=== PATIENT | female | born 1945 | race Caucasian/White ===

== ENCOUNTER → 2017-04-12 | Outpatient (CLI) | payer BC, MEDICARE ==
[~2017-04-12] MED LIST: ALPR.25T PO; ALPR0.5T7 PO; AMLO10TA2 PO; AMLO5TAB2 PO; AMOX1TAB11 PO; APIX5TAB PO; ASP81TEC PO; ATEN100T PO; ATEN25TA PO; ATEN50TA PO; CA C1TAB26 PO; CETI10TA20 PO; CHOL10007 PO; CPR250T PO; CYAN250T14 PO; DABI75CA3 PO; DCS100C PO; EST1.25T PO; FESO4TAB2 PO; GLYB2.5T4 PO; HYDR-3583 PO; HYDR-3812 PO; IBUP-2055 PO; LVT.05T PO; METF1000 PO; MTF500T PO; OLOP2.5D OP; OMEG-160 PO; OMEG1CAP51 PO; POLY17PO23 PO; PRAV10TA PO; PRV20T PO; PSYL1PAC15 PO
== END ==
LOC: CARD 13:30
PROVIDERS: ATTEND Internal Medicine Cardiovascular Disease
DX: E11.9 Type 2 diabetes mellitus without complications (principal); I10 Essential (primary) hypertension; E78.4 Other hyperlipidemia; I48.0 Paroxysmal atrial fibrillation; I73.9 Peripheral vascular disease, unspecified; I34.8 Other nonrheumatic mitral valve disorders; Z87.891 Personal history of nicotine dependence
CPT/HCPCS: 93306

== ENCOUNTER → 2017-04-24 | Outpatient (CLI) | payer BC, MEDICARE | LOC: RAD 14:46 | PROVIDERS: ATTEND Internal Medicine Cardiovascular Disease | DX: E78.4 Other hyperlipidemia (principal); E11.51 Type 2 diabetes mellitus with diabetic peripheral angiopathy without gangrene; I10 Essential (primary) hypertension; I48.0 Paroxysmal atrial fibrillation; Z87.891 Personal history of nicotine dependence | CPT/HCPCS: 93923 ==

== ENCOUNTER → 2018-02-13 | Outpatient (CLI) | payer BC, MEDICARE ==
[~2018-02-13] MED LIST changes: +ACHD5005 PO; -HYDR-3812 PO; -METF1000 PO; +METF10002 PO
--- NOTE | 2018-02-13 08:45 | Diagnostic Imaging Report ---
PROCEDURE: US abdomen complete. TECHNIQUE: Multiple real-time grayscale images were obtained over the abdomen in various projections. INDICATION: Epigastric pain. COMPARISON: None. FINDINGS: There is a 3.1 cm cyst in the right hepatic lobe. There is diffuse hepatic steatosis. There is no biliary dilatation. The common bile duct measures about 5 mm. The gallbladder appears unremarkable. The pancreas is unremarkable as visualized. The tail is not well seen. The spleen measures about 10 cm in length and appears normal. The right kidney measures 10.6 cm in length and left kidney measures 12.4 cm in length. Both appear unremarkable. The abdominal aorta and inferior vena cava are unremarkable as visualized. Distal abdominal aorta is not well seen. There is no ascites or sonographic Thorne's sign. IMPRESSION: 1. Diffuse hepatic steatosis and 3.1 cm right hepatic lobe cyst. 2. No additional abnormality is seen. Limited visualization of the pancreas and abdominal aorta. Dictated by: Dictated on workstation # [id number]
== END ==
LOC: RAD 07:29
PROVIDERS: ATTEND Internal Medicine
DX: K76.0 Fatty (change of) liver, not elsewhere classified (principal); K76.89 Other specified diseases of liver
CPT/HCPCS: 76700

== ENCOUNTER → 2018-09-23 | Outpatient (CLI) | payer MEDICARE, OTHER ==
[~2018-09-23] MED LIST changes: -AMLO10TA2 PO; +AMLO10TA6 PO; +METF-399 PO; -METF10002 PO
--- NOTE | 2018-09-23 13:18 | Diagnostic Imaging Report ---
INDICATION: Routine screening. COMPARISON: 06/01/2016. TECHNIQUE: 2D and 3D bilateral screening mammography was performed with CAD. FINDINGS: Scattered fibroglandular densities are identified bilaterally. The parenchymal pattern is stable. No mass or malignant appearing microcalcifications are seen. The axillae are unremarkable. IMPRESSION: No mammographic features suspicious for malignancy are identified. ACR BI-RADS Category 1: Negative. Result letter will be mailed to the patient. Note: At least 10% of breast cancer is not imaged by mammography. Dictated by: Dictated on workstation # [id number]
== END ==
LOC: RAD 09:42
PROVIDERS: ATTEND Internal Medicine
DX: Z12.31 Encounter for screening mammogram for malignant neoplasm of breast (principal)
CPT/HCPCS: 77067

== ENCOUNTER 2019-04-03 23:34 | Emergency (ER) | payer MEDICARE, OTHER ==
[~2019-04-03] VITALS: Ht 162.6 cm; Wt 75.3 kg
[~2019-04-03 23:34] MED LIST changes: -AMLO10TA6 PO; +AMLO10TA7 PO
[2019-04-03] MEDS ORDERED: NS IV 1000 ML 1,000 ML IV SCH (23:50)
--- NOTE | 2019-04-04 | ED GI ---
General Stated Complaint: RECTAL BLEEDING Source of Information: Patient History of Present Illness Date Seen by Provider: Apr 03, 2019 Time Seen by Provider: 23:40 Initial Comments PT ARRIVES VIA POV FROM HOME STATES SHE HAD BEEN LAYING DOWN, AND GOT UP TO GO TO THE BATHROOM TO URINATE, AND WHEN SHE DID, SHE STARTED PASSING BLOOD AND THEN A BLOOD CLOT FROM HER RECTUM. NO STOOL WAS PASSED, ONLY BLOOD. STATES BLEEDING HAS STOPPED NOW, OCCURRED 30 MINUTES AGO NO RECTAL PAIN NO ABDOMINAL PAIN, BUT STATES "IT SOUNDS LIKE MACHINE GUN NOISES COMING FROM ONE SIDE" OF ABDOMEN--STATES THAT HER STOMACH IS "RUMBLING" NO NAUSEA/VOMITING, AND HAD A NORMAL BM EARLIER TODAY. DENIES ANY STRAINING WITH VOIDING OR WITH BM'S STATES SHE IS NOT HAVING ANY PROBLEMS URINATING AND NO BLOOD IN HER URINE NO HISTORY OF SIMILAR STATES SHE HAS HAD HEMORRHOIDS IN THE PAST, BUT HAS NOT HAD ANY PROBLEMS FOR A LONG TIME, AND NEVER HAD BLEEDING LIKE THIS WITH HEMORRHOIDS. NO DIZZINESS NO SWEATS PT HAS NEVER HAD A COLONOSCOPY OR EGD, AND NOT HAD ANY SIGNIFICANT GI PROBLEMS, OTHER THAN OCCASIONAL ACID REFLUX SYMPTOMS THAT ARE RELIEVED WITH OTC PEPCID PT STATES SHE DOES TAKE XARELTO FOR ATRIAL FIBRILLATION NO EXCESSIVE BRUISING ANYWHERE ON BODY, NO BLEEDING FROM GUMS, ETC. PT IS CURRENTLY BEING TREATED FOR A SINUS INFECTION OVER THE LAST WEEK--IS ON CEFDINIR, AND HAD 3 DOSES OF PREDNISONE, PLUS A NASAL SPRAY PT IS DIABETIC AND TOOK HER INSULIN JUST PRIOR TO ARRIVAL, BUT DID NOT CHECK BLOOD SUGAR PCP: DR. KRUGER MANAGER MATERIAL: DR. DAVID Allergies and Home Medications Allergies Coded Allergies: meperidine HCl (Verified Allergy, Unknown, 01/31/16) Home Medications Alprazolam 0.5 Mg Tablet, 0.5 MG PO EVERY 6-8 HOURS PRN for ANXIETY, (Reported) Amlodipine Besylate 10 Mg Tablet, 10 MG PO DAILY, (Reported) Amoxicillin/Potassium Clav 1 Each Tablet, 500 MG PO BID WITH MEALS Prescribed by: WASHINGTON KRUGER on 02/04/16 0914 Apixaban 5 Mg Tablet, 5 MG PO BID, (Reported) Atenolol 100 Mg Tablet, 100 MG PO DAILY, (Reported) Atenolol 50 Mg Tablet, 50 MG PO HS, (Reported) Cetirizine HCl 10 Mg Tablet, 10 MG PO HS, (Reported) Cholecalciferol (Vitamin D3) 1,000 Unit Capsule, 1,000 UNIT PO DAILY, (Reported) Glyburide 2.5 Mg Tablet, 2.5 MG PO DAILY@0630 Prescribed by: WASHINGTON KRUGER on 02/04/16913 Hydrocodone Bit/Acetaminophen 1 Each Tablet, 1 TAB PO Q4H PRN for PAIN Prescribed by: WASHINGTON KRUGER on 02/04/16913 Ibuprofen 200 Mg Tablet, 800 MG PO EVERY 6-7 HOURS PRN for PAIN, (Reported) Levothyroxine Sodium 50 Mcg Tablet, 50 MCG PO DAILY, (Reported) Metformin HCl 1,000 Mg Tablet, 1,000 MG PO BID WITH MEALS, (Reported) [place]-3/Dha/Epa/Fish Oil 1 Each Capsule, 2,000 MG PO DAILY, (Reported) [place]stat[place]-3/Dha/Epa/Fish Oil 1 Each Capsule, 1,000 MG PO EVERY EVENING, (Reported) Pravastatin Sodium 10 Mg Tablet, 10 MG PO HS, (Reported) Patient Home Medication List Home Medication List Reviewed: Yes Review of Systems Review of Systems Constitutional: no symptoms reported; No diaphoresis, No dizziness Respiratory: No Symptoms Reported Cardiovascular: No Symptoms Reported Gastrointestinal: See HPI; Denies Abdominal Pain, Denies Constipated, Denies Diarrhea, Denies Nausea, Denies Poor Appetite, Denies Poor Fluid Intake; Rectal Bleeding; Denies Vomiting; Other (STATES ABDOMEN IS "BLOATED" BUT DOES NOT HURT) Genitourinary: No Symptoms Reported Musculoskeletal: no symptoms reported Skin: no symptoms reported Psychiatric/Neurological: No Symptoms Reported Endocrine: No Symptoms Reported Hematologic/Lymphatic: See HPI Past Hgwnuvb-Gjkbxd-Gpuglw Hx Patient Social History Alcohol Use: Rarely Uses Recreational Drug Use: No Smoking Status: Former Smoker (SMOKED A FEW CIGARETTES A DAY, BUT NONE FOR YEARS) Former Smoker, Quit: January 30, 1993 Recent Foreign Travel: No Contact w/Someone Who Travel: No Immunizations Up To Date Tetanus Booster (TDap): Less than 5yrs Date of Influenza Vaccine: Jun 10, 2011 Seasonal Allergies Seasonal Allergies: No Past Medical History Surgeries: Yes (HYST/BSO/APPY 1982; BLADDER SURGERY X 3--LAST ONE IN 2011, ALSO HAD RECTOCOELE REPAIR WITH ONE OF THE BLADDER SURGERIES) Appendectomy, Bladder Surgery, Eye Surgery, Hysterectomy, Oophorectomy, Rectal Respiratory: No Currently Using CPAP: Yes Cardiac: Yes Atrial Fibrillation, High Cholesterol, Hypertension, Valvular Heart Disease Neurological: No Reproductive Disorders: Yes (RECTOCOELE) 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 NO EGD OR COLONOSCOPY) Hemorrhoids Musculoskeletal: No Endocrine: Yes Diabetes, Insulin dep HEENT: Yes Cataract Cancer: No Psychosocial: Yes Anxiety, Depression Integumentary: No Blood Disorders: No Family Medical History Congenital heart disease FH: CHF (congestive heart failure) 19 FATHER ( at 48) Hypercholesterolemia G8 SISTER Hypertension G8 SISTER Myocardial infarction 19 FATHER, Onset:30's - 40 (DC at 36) Osteoporosis G8 SISTER CAD Under 55 Years Old Physical Exam Vital Signs Vital Signs - First Documented 04/03/19 23:40 Temp 97.8 Pulse 64 Resp 20 B/P (MAP) 111/69 (83) Pulse Ox 97 O2 Delivery Room Air Capillary Refill : Height/Weight/BMI Height: 5'4.00" Weight: 166lbs. 0.0oz. 75.292309gp; 28.5 BMI Method:Stated General Appearance: WD/WN, no apparent distress HEENT: No pale conjunctivae (R), No pale conjunctivae (L) Neck: normal inspection Respiratory: normal breath sounds, no respiratory distress, no accessory muscle use Cardiovascular: regular rate, rhythm, no edema, no murmur Gastrointestinal: normal bowel sounds, non tender, soft, no organomegaly, no pulsatile mass Rectal: normal rectal tone, other (SMALL AMOUNT OF DRIED BLOOD TO ANUS--NO ACTIVE BLEEDING. HAS AT LEAST 2 VERY TENDER, VERY FIRM INTERNAL HEMORRHOIDS--THE ONE AT 6:00 POSITION IS LARGEST AND IS THE MOST FIRM AND TENDER. NO STOOL IN RECTAL VAULT. 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, no motor/sensory deficits, alert, oriented x 3 Skin: normal color, warm/dry Progress/Results/Core Measures Results/Orders Lab Results Laboratory Tests Test 04/03/19 23:50 04/04/19 00:07 04/04/19 00:15 Range/Units White Blood Count 8.7 4.3-11.0 10^3/uL Red Blood Count 4.82 4.35-5.85 10^6/uL Hemoglobin 13.7 11.5-16.0 G/DL Hematocrit 41 35-52 % Mean Corpuscular Volume 84 80-99 FL Mean Corpuscular Hemoglobin 28 25-34 PG Mean Corpuscular Hemoglobin Concent 34 32-36 G/DL Red Cell Distribution Width 13.8 10.0-14.5 % Platelet Count 258 130-400 10^3/uL Mean Platelet Volume 11.3 H 7.4-10.4 FL Neutrophils (%) (Auto) 50 42-75 % Lymphocytes (%) (Auto) 37 12-44 % Monocytes (%) (Auto) 9 0-12 % Eosinophils (%) (Auto) 4 0-10 % Basophils (%) (Auto) 1 0-10 % Neutrophils # (Auto) 4.3 1.8-7.8 X 10^3 Lymphocytes # (Auto) 3.2 1.0-4.0 X 10^3 Monocytes # (Auto) 0.8 0.0-1.0 X 10^3 Eosinophils # (Auto) 0.3 0.0-0.3 10^3/uL Basophils # (Auto) 0.1 0.0-0.1 10^3/uL Prothrombin Time 14.2 12.2-14.7 SEC INR Comment 1.1 0.8-1.4 Activated Partial Thromboplast Time 37 H 24-35 SEC Sodium Level 138 135-145 MMOL/L Potassium Level 3.9 3.6-5.0 MMOL/L Chloride Level 104 98-107 MMOL/L Carbon Dioxide Level 18 L 21-32 MMOL/L Anion Gap 16 H 5-14 MMOL/L Blood Urea Nitrogen 17 7-18 MG/DL Creatinine 0.83 0.60-1.30 MG/DL Estimat Glomerular Filtration Rate > 60 BUN/Creatinine Ratio 20 Glucose Level 181 H 70-105 MG/DL Calcium Level 10.3 H 8.5-10.1 MG/DL Corrected Calcium 8.5-10.1 MG/DL Total Bilirubin 0.3 0.1-1.0 MG/DL Aspartate Amino Transf (AST/SGOT) 32 5-34 U/L Alanine Aminotransferase (ALT/SGPT) 55 0-55 U/L Alkaline Phosphatase 77 40-136 U/L Total Protein 8.3 H 6.4-8.2 GM/DL Albumin 4.8 H 3.2-4.5 GM/DL Amylase Level 75 25-125 U/L Lipase 46 8-78 U/L Glucometer 181 H 70-110 MG/DL Urine Color YELLOW Urine Clarity CLEAR Urine pH 7 5-9 Urine Specific [place] 1.015 L 1.016-1.022 Urine Protein 2+ H NEGATIVE Urine Glucose (UA) 2+ H NEGATIVE Urine Ketones NEGATIVE NEGATIVE Urine Nitrite NEGATIVE NEGATIVE Urine Bilirubin NEGATIVE NEGATIVE Urine Urobilinogen NORMAL NORMAL MG/DL Urine Leukocyte Esterase NEGATIVE NEGATIVE Urine RBC (Auto) 4+ H NEGATIVE Urine RBC 0-2 /HPF Urine WBC NONE /HPF Urine Squamous Epithelial Cells 2-5 /HPF Urine Crystals NONE /LPF Urine Bacteria NEGATIVE /HPF Urine Casts NONE /LPF Urine Mucus NEGATIVE /LPF Urine Culture Indicated NO My Orders Orders - LORRAINE LYNN DO Accucheck Stat ONCE (04/03/19 23:50) Ed Iv/Invasive Line Start (04/03/19 23:50) Monitor-Rhythm Ecg Trace Only (04/03/19 23:50) Amylase (04/03/19 23:50) Cbc With Automated Diff (04/03/19 23:50) Comprehensive Metabolic Panel (04/03/19 23:50) Lipase (04/03/19 23:50) Protime With Inr (04/03/19 23:50) Partial Thromboplastin Time (04/03/19 23:50) Ua Culture If Indicated (04/03/19 23:50) Ed Iv/Invasive Line Start (04/03/19 23:50) Ns Iv 1000 Ml (Sodium Chloride 0.9%) (04/03/19 23:50) Ct Abdomen/Pelvis W (04/04/19 00:30) Acute Abd Series (04/04/19 00:30) Iohexol Injection (Omnipaque 350 Mg/Ml 1 (04/04/19 01:00) Received Contrast (Hold Metformin- Contr (04/04/19 01:00) Ns (Ivpb) (Sodium Chloride 0.9% Ivpb Bag (04/04/19 01:00) Medications Given in ED Current Medications Medications Dose Ordered Sig/Esmer Route Start Time Stop Time Status Last Admin Dose Admin Iohexol 100 ml ONCE ONCE IV 04/04/19 01:00 04/04/19 01:01 DC 04/04/19 01:01 100 ML Sodium Chloride 80 ml ONCE ONCE IV 04/04/19 01:00 04/04/19 01:01 DC 04/04/19 01:01 80 ML Vital Signs/I&O 04/03/19 23:40 Temp 97.8 Pulse 64 Resp 20 B/P (MAP) 111/69 (83) Pulse Ox 97 O2 Delivery Room Air Progress Progress Note : Progress Note NO RECTAL BLEEDING DURING ENTIRE ER STAY NO ABDOMINAL PAIN OR NAUSEA/VOMITING, AND NO BM DURING ER STAY PT STATES THAT SHE HAS SEEN DR. VICTOR IN THE PAST FOR AN INFECTED DOG BITE. ADVISED HER TO CALL HIS OFFICE IN THE MORNING, WELL DR. KRUGER'S OFFICE, FOR FOLLOW UP CARE. ADVISED THAT SHE WOULD LIKELY NEED A COLONOSCOPY AT SOME POINT. PT IS ANXIOUS TO GO HOME, STATES SHE FEELS FINE AND HAS NOT HAD ANY BLEEDING HERE. PT ADVISED TO RETURN TO ER IF SYMPTOMS WORSEN/RETURN. Diagnostic Imaging Comments ABDOMEN XRAYS--NO ACUTE PROCESS, PENDING RADIOLOGIST REVIEW CT ABDOMEN/PELVIS--NO ACUTE PROCESS, HEPATIC STEATOSIS; DIVERTICULOSIS--NO ACUTE DIVERTICULITIS, AND NO BOWEL WALL THICKENING; MILD HIATAL HERNIA; POSSIBLE HEPATIC CYST OR HEMANGIOMA OF LIVER--PER [facility] VIA FAX AT [id number] Reviewed: Reviewed by Me Departure Impression Primary Impression: Rectal bleeding Additional Impressions: XARELTO USE Internal hemorrhoids Disposition: HOME, SELF-CARE Condition: Improved Departure-Patient Inst. Referrals: TAWNY VICTOR MINDI DO (PCP/Family) Primary Care Physician Patient Instructions: Hemorrhoids (DC), Gastrointestinal Bleeding (DC) Add. Discharge Instructions: HOLD YOUR MORNING DOSE OF XARELTO CONTINUE ALL OTHER MEDICATIONS FOLLOW UP WITH DR. KRUGER AND DR. VICTOR FOR THIS PROBLEM--CALL IN AM FOR APPOINTMENT RETURN TO ER IF SYMPTOMS WORSEN LORRAINE LYNN DO Apr 04, 2019 00:00
[2019-04-04 00:12] LABS: BASOPHILS # (AUTO) 0.1 10^3/uL (0.0-0.1); BASOPHILS % (AUTO) 1 % (0-10); EOSINOPHILS # (AUTO) 0.3 10^3/uL (0.0-0.3); EOSINOPHILS % (AUTO) 4 % (0-10); HEMATOCRIT 41 % (35-52); HEMOGLOBIN 13.7 G/DL (11.5-16.0); LYMPHOCYTES # (AUTO) 3.2 X 10^3 (1.0-4.0); LYMPHOCYTES % (AUTO) 37 % (12-44); MEAN CORPUSCULAR HEMOGLOBIN 28 PG (25-34); MEAN CORPUSCULAR HGB CONC 34 G/DL (32-36); MEAN CORPUSCULAR VOLUME 84 FL (80-99); MEAN PLATELET VOLUME 11.3 FL (7.4-10.4); MONOCYTES # (AUTO) 0.8 X 10^3 (0.0-1.0); MONOCYTES % (AUTO) 9 % (0-12); NEUTROPHILS # (AUTO) 4.3 X 10^3 (1.8-7.8); NEUTROPHILS % (AUTO) 50 % (42-75); PLATELET COUNT 258 10^3/uL (130-400); RED CELL DISTRIBUTION WIDTH 13.8 % (10.0-14.5); WHITE BLOOD COUNT 8.7 10^3/uL (4.3-11.0)
[2019-04-04 00:20] LABS: INR 1.1 (0.8-1.4); PROTHROMBIN TIME PATIENT 14.2 SEC (12.2-14.7)
[2019-04-04 00:25] LABS: ALANINE AMINOTRANSFERASE 55 U/L (0-55); ALBUMIN 4.8 GM/DL (3.2-4.5); ALKALINE PHOSPHATASE 77 U/L (40-136); AMYLASE 75 U/L (25-125); BILIRUBIN,TOTAL 0.3 MG/DL (0.1-1.0); BUN/CREATININE RATIO 20; CALCIUM 10.3 MG/DL (8.5-10.1); CARBON DIOXIDE 18 MMOL/L (21-32); CHLORIDE 104 MMOL/L (98-107); CREATININE SERUM 0.83 MG/DL (0.60-1.30); GFR ESTIMATED > 60; GLUCOSE 181 MG/DL (70-105); LIPASE 46 U/L (8-78); POTASSIUM 3.9 MMOL/L (3.6-5.0); SODIUM 138 MMOL/L (135-145); TOTAL PROTEIN 8.3 GM/DL (6.4-8.2)
[2019-04-04 00:34] LABS: BILIRUBIN,URINE NEGATIVE (NEGATIVE); CLARITY,URINE CLEAR; COLOR,URINE YELLOW; GLUCOSE, URINE (UA) 2+ (NEGATIVE); KETONES,URINE NEGATIVE (NEGATIVE); LEUKOCYTE ESTERASE ,URINE NEGATIVE (NEGATIVE); NITRITE,URINE NEGATIVE (NEGATIVE); PH,URINE 7 (5-9); PROTEIN,URINE 2+ (NEGATIVE); UROBILINOGEN,URINE NORMAL (NORMAL)
[2019-04-04 00:41] LABS: BACTERIA,URINE NEGATIVE /HPF; RBC,URINE 0-2 /HPF
[2019-04-04] MEDS ORDERED: HOLD METFORMIN - RECEIVED CONTRAST 20 ML VIAL IV SCH (01:00)
[2019-04-04] MEDS ORDERED: IOHEXOL 350 MG/ML 100 ML (OMNIPAQUE 350) VIAL IV ONE (01:00)
[2019-04-04] MEDS ORDERED: NS 100 ML (IVPB) BAG IV ONE (01:00)
[2019-04-04 01:58] VITALS: BP 114/75
--- NOTE | 2019-04-04 05:25 | Diagnostic Imaging Report ---
INDICATION: Rectal bleeding. COMPARISON: None FINDINGS: Supine and upright views of the abdomen show a nondistended bowel gas pattern. No abnormal air fluid levels or free intraperitoneal air is seen. No abnormal extraosseous calcifications are seen. Bony and soft tissue structures are within normal limits. No organomegaly is identified. Accompanying upright chest shows normal heart size and pulmonary vascularity. The lungs are well aerated and clear. The mediastinum is normal in appearance. IMPRESSION: 1. No bowel obstruction or free air. 2. Normal chest. No pneumonia or pulmonary edema. Dictated by: Dictated on workstation # [id number]
--- NOTE | 2019-04-04 06:33 | Diagnostic Imaging Report ---
PROCEDURE: CT abdomen and pelvis with contrast. TECHNIQUE: Multiple contiguous axial images were obtained through the abdomen and pelvis after administration of intravenous contrast. Auto Exposure Controls were utilized during the CT exam to meet ALARA standards for radiation dose reduction. INDICATION: Rectal bleeding. FINDINGS: No comparison available. Limited views of the lower thorax are normal. There is hepatic steatosis. A 13 mm low attenuating lesion in the right hemiliver likely a cyst with some sparing of steatosis. Portal vein is patent. Gallbladder is normal. No biliary ductal dilation. Pancreas, spleen and adrenal glands are normal. Kidneys enhance symmetrically without focal lesion. No hydronephrosis. Urinary bladder is normal. There is extensive diverticulosis without diverticulitis. No free fluid or air. No obstruction or inflammation. No abdominal or pelvic lymphadenopathy. Abdominal aorta is normal in caliber. There are no suspicious osseous lesions. IMPRESSION: 1. Extensive diverticulosis without diverticulitis. 2. Hepatic steatosis. Dictated by: Dictated on workstation # [id number]
== END 2019-04-04 01:58 | disposition home or self-care (01) ==
LOC: EDUNIT# 23:34 → ER 23:36
DX: K64.8 Other hemorrhoids (principal); I48.91 Unspecified atrial fibrillation; E11.9 Type 2 diabetes mellitus without complications; I10 Essential (primary) hypertension; E78.00 Pure hypercholesterolemia, unspecified; F41.9 Anxiety disorder, unspecified; F32.9 Major depressive disorder, single episode, unspecified; Z87.440 Personal history of urinary (tract) infections; Z88.5 Allergy status to narcotic agent; Z79.4 Long term (current) use of insulin; Z79.01 Long term (current) use of anticoagulants; Z79.84 Long term (current) use of oral hypoglycemic drugs; Z87.891 Personal history of nicotine dependence; Z90.49 Acquired absence of other specified parts of digestive tract; Z90.710 Acquired absence of both cervix and uterus; Z82.49 Family history of ischemic heart disease and other diseases of the circulatory system
CPT/HCPCS: 36415; 74022; 74177; 80053; 81000; 82150; 82962; 83690; 85025; 85610; 85730; 93041; 96360

== ENCOUNTER 2019-05-16 11:30 | Outpatient (CLI) | payer MEDICARE, OTHER ==
[~2019-05-16] VITALS: Ht 162.6 cm; Wt 72.6 kg
[2019-05-16] MEDS ORDERED: FENO145T37 PO (11:44)
[2019-05-16] MEDS ORDERED: GLYB2.5T4 PO (11:44)
[2019-05-16] MEDS ORDERED: LEVO75TA6 PO (11:44)
[2019-05-16] MEDS ORDERED: OMEP20TA33 PO (11:44)
[2019-05-16] MEDS ORDERED: INSU100I29 SQ (11:46)
[2019-05-16] MEDS ORDERED: GLIM2TAB PO (11:46)
== END 2019-05-16 12:26 | disposition home or self-care (01) ==
LOC: PREOP 11:30
PROVIDERS: ATTEND Surgery
DX: Z01.818 Encounter for other preprocedural examination (principal)

== ENCOUNTER 2019-05-20 07:41 | Day surgery (SDC) | payer MEDICARE, OTHER ==
[~2019-05-20] VITALS: Ht 162.6 cm; Wt 72.6 kg
[2019-05-20] VITALS (7 sets, daily range): BP systolic 115–172; BP diastolic 61–92
[~2019-05-20 07:41] MED LIST changes: +FENO145T37 PO; +GLIM2TAB PO; +INSU100I29 SQ; +LEVO75TA6 PO; +OMEP20TA33 PO
[2019-05-20] MEDS ORDERED: LACTATED RINGERS 1,000 ML IV ONE (07:47)
[2019-05-20] MEDS ORDERED: LACTATED RINGERS 1,000 ML IV STA (07:53)
[2019-05-20] MEDS ORDERED: NS IV 500 ML 500 ML IV SCH (08:15)
[2019-05-20] MEDS ORDERED: MIDAZOLAM 2 MG/2 ML (VERSED) VIAL ONE (08:26)
[2019-05-20] MEDS ORDERED: proPOfol 200 MG/20 ML (DIPRIVAN) VIAL IV ONE (08:26)
--- NOTE | 2019-05-20 08:47 | Progress Note-Pre Operative ---
Pre-Operative Progress Note H&P Reviewed The H&P was reviewed, patient examined and no changes noted. Date Seen by Provider: May 20, 2019 Time Seen by Provider: 08:37 Date H&P Reviewed: May 20, 2019 Time H&P Reviewed: 08:37 Pre-Operative Diagnosis: bright red blood per rectum, family hx colon cancer TAWNY VICTOR DO May 20, 2019 08:47
--- NOTE | 2019-05-20 09:15 | Progress Note-Post Operative ---
Post-Operative Progess Note Surgeon (s)/Senior Sales Compensation Analyst (s) Surgeon TAWNY VICTOR DO Senior Sales Compensation Analyst: na Pre-Operative Diagnosis bright red blood per rectum, family hx colon cancer Post-Operative Diagnosis diverticulosis, colon polyp x2 Procedure & Operative Findings Date of Procedure 05/20/19 Procedure Performed/Findings colonoscopy c hot bx polypectomy x 1 and snare polypectomy x 1 Anesthesia Type per mda Estimated Blood Loss Estimated blood loss (mL): none Specimens/Packing Specimens Removed ascending and sigmoid colon TAWNY VICTOR DO May 20, 2019 09:15
--- NOTE | 2019-05-20 09:16 | Discharge Inst-Simple/Standard ---
Discharge Inst-Standard Patient Instructions/Follow Up Plan of Care/Instructions/FU: 2 weeks Juan [place] Activity as Tolerated: Yes Discharge Diet: Regular Diet (high fiber) TAWNY VICTOR DO May 20, 2019 09:16
--- NOTE | 2019-05-20 10:01 | Anesthesia-General Post-Op ---
MAC Patient Condition Mental Status/LOC: Same as Preop Cardiovascular: Satisfactory Nausea/Vomiting: Absent Respiratory: Satisfactory Pain: Controlled Complications: Absent Post Op Complications Complications None Follow Up Care/Instructions Patient Instructions None needed. Anesthesiology Discharge Order Discharge Order Patient is doing well, no complaints, stable vital signs, no apparent adverse anesthesia problems. No complications reported per nursing. TYRA CANDELARIA CRNA May 20, 2019 10:01
--- NOTE | 2019-05-20 15:36 | OPERATIVE REPORT ---
DATE OF SERVICE: 05/20/2019 PREOPERATIVE DIAGNOSES: Bright red blood per rectum and family history of colon cancer. POSTOPERATIVE DIAGNOSES: Colon polyps, diverticulosis. PROCEDURES PERFORMED: Colonoscopy with hot biopsy polypectomy x1 and snare polypectomy x1. SURGEON: Tawny Rangel DO ANESTHESIA: Per MDA. ESTIMATED BLOOD LOSS: None. COMPLICATIONS: None. INDICATIONS: The patient is a 74-year-old female with bright red blood per rectum recently and has family history of colon cancer. She understands risks and benefits of procedure and wished to proceed with procedure. Consent was signed in the chart. DESCRIPTION OF PROCEDURE: The patient was taken to the endoscopy suite, placed in left lateral recumbent position. Timeout was performed. Digital rectal exam was performed. There were no palpable polyps, masses or ulcerations. Scope was inserted in the rectum, advanced all the way to cecum with minimal difficulty. Prep was adequate. Scope was then slowly retracted back. There were no polyps, masses or ulcerations in the cecum. In the ascending colon, a flat larger polyp was present, which hot biopsy polypectomy was performed. The scope was then continued to slowly retract back. There were no other polyps, masses or ulcerations within the remainder of the ascending, transverse and descending colon. In the sigmoid colon, moderate amount of diverticulosis present. There is also a larger polyp, which snare polypectomy was performed. This was able to be suctioned for specimen to be obtained. Scope was then continued to slowly retract back into the rectum, where it was also retroflexed noting no other pathology. Scope was returned to its normal position, slowly withdrawn until completely removed. RECOMMENDATIONS: The patient will follow up on pathology. We would recommend repeat colonoscopy in one year to make sure the polyps have been eradicated since there were larger. If she has any problems before that, she should be reevaluated at that time. The patient also recommended high fiber diet. Job ID: [id number] DocumentID: [id number] Dictated Date: 05/20/2019 09:19:25 Cardiac Cath Lab Radiology Technologist Date: 05/20/2019 15:35:09 Dictated By: TAWNY RANGEL DO
== END 2019-05-20 10:20 | disposition home or self-care (01) ==
LOC: ENDO 07:41
PROVIDERS: ATTEND Surgery
DX: K63.5 Polyp of colon (principal); D12.2 Benign neoplasm of ascending colon; K62.5 Hemorrhage of anus and rectum; K57.30 Diverticulosis of large intestine without perforation or abscess without bleeding; K21.9 Gastro-esophageal reflux disease without esophagitis; E11.9 Type 2 diabetes mellitus without complications; I48.0 Paroxysmal atrial fibrillation; F41.9 Anxiety disorder, unspecified; F32.9 Major depressive disorder, single episode, unspecified; Z79.4 Long term (current) use of insulin; Z88.6 Allergy status to analgesic agent; Z88.5 Allergy status to narcotic agent; Z88.8 Allergy status to other drugs, medicaments and biological substances; Z99.89 Dependence on other enabling machines and devices; Z79.01 Long term (current) use of anticoagulants; Z79.84 Long term (current) use of oral hypoglycemic drugs; Z87.891 Personal history of nicotine dependence; Z79.899 Other long term (current) drug therapy; Z82.3 Family history of stroke; Z82.49 Family history of ischemic heart disease and other diseases of the circulatory system; Z80.0 Family history of malignant neoplasm of digestive organs

== ENCOUNTER 2020-03-30 16:48 | Inpatient (IN) | payer MEDICARE, OTHER ==
[~2020-03-30] VITALS: Ht 162.6 cm; Wt 68.5 kg
[~2020-03-30 16:48] MED LIST changes: -CETI10TA20 PO; +CETI10TA21 PO; +FENO145T26 PO; -FENO145T37 PO; -GLIM2TAB PO; +GLIM2TAB4 PO; -IBUP-2055 PO; +IBUP-2473 PO
[2020-03-30] MEDS ORDERED: MELATONIN 3 MG TABLET PO PRN (17:15)
[2020-03-30] MEDS ORDERED: ONDANSETRON 4 MG/2 ML (SDV) Z0FRAN IVP PRN (17:15)
[2020-03-30] MEDS ORDERED: ACETAMINOPHEN 500 MG TAB (TYLENOL) PO PRN (17:15)
[2020-03-30] MEDS ORDERED: morphine INJ 10 MG/ML 1ML (SYR OR VIAL) IVP PRN (17:15)
[2020-03-30] MEDS ORDERED: ONDANSETRON 4 MG (ZOFRAN) ORAL DISSOLVE TAB PO PRN (17:15)
[2020-03-30] MEDS ORDERED: CALCIUM CARBONATE 500 MG (TUMS) TAB.CHEW PO PRN (17:15)
[2020-03-30] MEDS ORDERED: DOCUSATE SODIUM 100 MG (COLACE) CAP PO PRN (17:15)
[2020-03-30] MEDS ORDERED: PIPERACILLIN/TAZO 4.5 GM/NS 100 ML IV NR ×2 (18:00)
[2020-03-30] MEDS: NS IV 1000 ML 1,000 ML IV SCH (18:13)
[2020-03-30 18:22] LABS: BASOPHILS # (AUTO) 0.1 10^3/uL (0.0-0.1); BASOPHILS % (AUTO) 1 % (0-10); EOSINOPHILS # (AUTO) 0.3 10^3/uL (0.0-0.3); EOSINOPHILS % (AUTO) 4 % (0-10); HEMATOCRIT 37 % (35-52); HEMOGLOBIN 12.9 G/DL (11.5-16.0); LYMPHOCYTES # (AUTO) 2.4 X 10^3 (1.0-4.0); LYMPHOCYTES % (AUTO) 34 % (12-44); MEAN CORPUSCULAR HEMOGLOBIN 29 PG (25-34); MEAN CORPUSCULAR HGB CONC 35 G/DL (32-36); MEAN CORPUSCULAR VOLUME 84 FL (80-99); MONOCYTES # (AUTO) 0.7 X 10^3 (0.0-1.0); MONOCYTES % (AUTO) 10 % (0-12); NEUTROPHILS # (AUTO) 3.5 X 10^3 (1.8-7.8); NEUTROPHILS % (AUTO) 51 % (42-75); PLATELET COUNT 254 10^3/uL (130-400); RED CELL DISTRIBUTION WIDTH 12.6 % (10.0-14.5)
--- NOTE | 2020-03-30 18:28 | NUR ---
ALPHONSO GALLOWAY admitted to room 414-1, with an admitting diagnosis of abdominal pain, on 03/30/20 from via direct admit, accompanied by .ALPHONSO GALLOWAY introduced to surroundings, call light, bed controls, phone, TV, temperature control, lights, meal times, smoking policy, visitor policy, side rail policy, bathrooms and showers. Patient Rights given to patient in the handbook. ALPHONSO GALLOWAY verbalizes understanding that [facility] is not responsible for the loss or damage to any personal effects or valuables that are kept in the patients posession during their hospitalization. The following Patient Care Plans and discharge planning were discussed with the patient . ALPHONSO GALLOWAY verbalizes understanding of Interdisciplinary Patient Education. Patient and family were informed about the Rapid Response Team and its purpose.
[2020-03-30 18:48] LABS: ALANINE AMINOTRANSFERASE 43 U/L (0-55); ALBUMIN 4.6 GM/DL (3.2-4.5); ALKALINE PHOSPHATASE 73 U/L (40-136); AMYLASE 51 U/L (25-125); BILIRUBIN,TOTAL 0.3 MG/DL (0.1-1.0); BUN/CREATININE RATIO 13; CALCIUM 10.2 MG/DL (8.5-10.1); CARBON DIOXIDE 21 MMOL/L (21-32); CHLORIDE 105 MMOL/L (98-107); CREATININE SERUM 0.77 MG/DL (0.60-1.30); GFR ESTIMATED > 60; GLUCOSE 162 MG/DL (70-105); LIPASE 39 U/L (8-78); SODIUM 138 MMOL/L (135-145); TOTAL PROTEIN 7.8 GM/DL (6.4-8.2)
[2020-03-30 18:51] LABS: ERYTHROCYTE SEDIMENTATION RATE 14 MM/HR (0-30)
[2020-03-30 19:56] VITALS: BP 162/73
[2020-03-30 19:58] VITALS: BP 162/73
--- NOTE | 2020-03-30 20:19 | Progress Note ---
Progress Note Scribed By: Rufus Peters Pt has stopped her Metformin, since it upsets her stomach. Pt hasn't had any ER visits, surgeries, or injuries. Pt hasn't seen any other specialists. Pt stated her stomach pain hasn't left since it started in February. Pt stated that when she eats it will hurt, and it is a sharp pain. Pt stated she is constantly hungry. Pt doesn't have any pain with urination or BM. Pt stated her stool has changed to be constant or not at all. Pt had a colonoscopy last May and is scheduled to have another done this May by Dr. Rangel. Pt did have two polyps removed and is being treated for her diverticulitis. Pt stated her pain is still there, slightly better than it was but still hurts. Pt states she has had a little bit of diarrhea. Pt has lost around 20 lbs in the last two months. I advised the next step would be to put the pt in the hospital to get some fluids and so Dr. Rangel can see her. I stated pt looks drained. Pt is not on any blood thinners. Pt will get a CT scan done. Pt has had a CT scan done last March on her stomach when she went to the ER. Physical Exam: Lungs are CTAB, ears look good, heart looks good, ankles show no signs of swelling or edema. WASHINGTON KRUGER DO Mar 30, 2020 20:19
[2020-03-30] MEDS: polyethylene glycoL POWDER 17 GM (MIRALAX) PACK PO SCH (20:32)
[2020-03-30] MEDS: HYDROcodone/APAP 5 MG/325 MG (LORTAB) TAB PO PRN (20:39)
--- NOTE | 2020-03-30 21:21 | Consultation - Surgery ---
History of Present Illness History of Present Illness Patient Consulted On(grace/time) 03/30/20 21:21 Date Seen by Provider: Mar 30, 2020 Time Seen by Provider: 21:21 History of Present Illness Consult requested by Dr. Kim for LLQ abdominal pain. Patient is a 74 year old female who states last couple months been having llq abominal pain. Sharp pain and sometimes bloating pain that move into left hip and around her abdomen. She states eating will make it worse. Bowel movement may make it a little better. She has some times of constipation she states and then today she had 6 normal bowel movements. She does not have any nausea or emesis. She has not had any blood in her stools. She had a colonoscopy almost a year ago which she had 2 large polyps and diverticulosis and was planning on having another colonoscopy for follow up in 2 months. Patient states she has lost about 20 pounds over last couple months. She feels slightly weak. Allergies and Home Medications Allergies Coded Allergies: diphenhydramine (Verified Allergy, Unknown, 03/30/20) meperidine HCl (Verified Allergy, Unknown, 01/31/16) pravastatin (Verified Allergy, Unknown, 03/30/20) Home Medications Alprazolam 0.5 Mg Tablet, 0.5 MG PO EVERY 6-8 HOURS PRN for ANXIETY, (Reported) Amlodipine Besylate 10 Mg Tablet, 10 MG PO DAILY, (Reported) Atenolol 100 Mg Tablet, 100 MG PO DAILY, (Reported) Atenolol 50 Mg Tablet, 50 MG PO HS, (Reported) Cetirizine HCl 10 Mg Tablet, 10 MG PO HS, (Reported) Cholecalciferol (Vitamin D3) 1,000 Unit Capsule, 1,000 UNIT PO DAILY, (Reported) Fenofibrate Nanocrystallized 145 Mg Tablet, 145 MG PO HS, (Reported) Glimepiride 2 Mg Tablet, 2 MG PO BID, (Reported) Ibuprofen 200 Mg Tablet, 800 MG PO EVERY 6-7 HOURS PRN for PAIN, (Reported) Insulin Detemir 100 Unit/1 Ml Insuln.pen, 25 UNIT SQ HS, (Reported) Levothyroxine Sodium 75 Mcg Tablet, 75 MCG PO DAILY, (Reported) Metformin HCl 1,000 Mg Tablet, 1,000 MG PO BID WITH MEALS, (Reported) [place]-3/Dha/Epa/Fish Oil 1 Each Capsule, 2,000 MG PO DAILY, (Reported) [place]-3/Dha/Epa/Fish Oil 1 Each Capsule, 1,000 MG PO EVERY EVENING, (Reported) Omeprazole Magnesium 20 Mg Tablet.dr, 20 MG PO DAILY, (Reported) Patient Home Medication List Home Medication List Reviewed: Yes Past Mcrspsn-Afbhil-Tzerej Hx Patient Social History Alcohol Use: Denies Use Recreational Drug Use: No Former Smoker, Quit: January 30, 1993 2nd Hand Smoke Exposure: No Recent Foreign Travel: No Contact w/Someone Who Travel: No Recent Infectious Disease Expo: No Recent Hopitalizations: No Physical Abuse Screen: Yes Sexual Abuse: No Immunizations Up To Date Tetanus Booster (TDap): Less than 5yrs Date of Pneumonia Vaccine: Jun 10, 2018 Date of Influenza Vaccine: Jun 10, 2018 Seasonal Allergies Seasonal Allergies: No Surgeries History of Surgeries: Yes (bladder sx x3) Surgeries: Appendectomy, Bladder Surgery, Eye Surgery, Hysterectomy, Oophorectomy, Rectal Respiratory History of Respiratory Disorde: No Respiratory Disorders: Sleep Apnea Cardiovascular History of Cardiac Disorders: Yes (mitral valve prolapse) Cardiac Disorders: Atrial Fibrillation, High Cholesterol, Hypertension, Valvular Heart Disease Neurological History of Neurological Disord: No Reproductive System Hx Reproductive Disorders: Yes (RECTOCOELE) Sexually Transmitted Disease: No HIV/AIDS: No Female Reproductive Disorders: Denies 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 NO EGD OR COLONOSCOPY) Gastrointestinal Disorders: Hemorrhoids Musculoskeletal History of Musculoskeletal Dis: No Musculoskeletal Disorders: Chronic Back Pain Endocrine History of Endocrine Disorders: Yes Endocrine Disorders: Diabetes, Insulin dep HEENT History of HEENT Disorders: Yes HEENT Disorders: Cataract Cancer History of Cancer: No Psychosocial History of Psychiatric Problem: Yes Behavioral Health Disorders: Anxiety, Depression Integumentary History of Skin or Integumenta: No Blood Transfusions History of Blood Disorders: Yes (anemia in past) Reviewed Nursing Assessment Reviewed/Agree w Nursing PMH: Yes Family Medical History Significant Family History: CAD Under 55 Years Old Family Medial History: Colon cancer Congenital heart disease FH: CHF (congestive heart failure) 19 FATHER ( at 48) Hypercholesterolemia G8 SISTER Hypertension G8 SISTER Myocardial infarction 19 FATHER, Onset:30's - 40 ([place] at 36) Osteoporosis G8 SISTER Review of Systems-General Constitutional: No chills, No diaphoresis; weakness, weight loss EENTM: No ear pain, No blurred vision, No throat pain, No throat swelling Respiratory: No cough, No dyspnea on exertion Cardiovascular: No chest pain, No edema, No palpitations Gastrointestinal: abdominal pain (LLQ); No melena, No nausea, No vomiting Genitourinary: No decreased output, No dysuria Musculoskeletal: No back pain, No joint pain Skin: No change in color, No change in hair/nails Psychiatric/Neurological: Denies Anxiety, Denies Depressed, Denies Emotional Problems All Other Systems Reviewed Negative Unless Noted: Yes (Negative excepted noted.) Physical Exam-General Problems Physical Exam Vital Signs Vital Signs - First Documented 03/30/20 03/30/20 18:35 19:56 Temp 37.2 Pulse 66 Resp 16 B/P (MAP) 162/73 Pulse Ox 96 O2 Delivery Room Air Capillary Refill : General Appearance: WD/WN, no apparent distress (laying in bed) HEENT: PERRL/EOMI, normal ENT inspection Neck: non-tender, supple, normal inspection Respiratory: chest non-tender, no respiratory distress, no accessory muscle use Cardiovascular: regular rate, rhythm, no edema Gastrointestinal: soft; No guarding, No rebound; tenderness (mild left lower quadrant); No mass Rectal: deferred (at this time) Back: no CVA tenderness, no vertebral tenderness Extremities: non-tender, normal inspection Neurologic/Psychiatric: wax pourer II-XII nml as tested, no motor/sensory deficits, alert, normal mood/affect, oriented x 3 Skin: normal color, warm/dry Lymphatic: no adenopathy Data Review Labs Laboratory Tests 03/30/20 18:15: White Blood Count 7.0, Red Blood Count 4.43, Hemoglobin 12.9, Hematocrit 37, Mean Corpuscular Volume 84, Mean Corpuscular Hemoglobin 29, Mean Corpuscular Hemoglobin Concent 35, Red Cell Distribution Width 12.6, Platelet Count 254, Mean Platelet Volume 11.0H, Neutrophils (%) (Auto) 51, Lymphocytes (%) (Auto) 34, Monocytes (%) (Auto) 10, Eosinophils (%) (Auto) 4, Basophils (%) (Auto) 1, Neutrophils # (Auto) 3.5, Lymphocytes # (Auto) 2.4, Monocytes # (Auto) 0.7, Eosinophils # (Auto) 0.3, Basophils # (Auto) 0.1, Erythrocyte Sedimentation Rate 14, Sodium Level 138, Potassium Level 4.0, Chloride Level 105, Carbon Dioxide Level 21, Anion Gap 12, Blood Urea Nitrogen 10, Creatinine 0.77, Estimat Glomerular Filtration Rate > 60, BUN/Creatinine Ratio 13, Glucose Level 162H, Calcium Level 10.2H, Corrected Calcium , Total Bilirubin 0.3, Aspartate Amino Transf (AST/SGOT) 34, Alanine Aminotransferase (ALT/SGPT) 43, Alkaline Phosphatase 73, Total Protein 7.8, Albumin 4.6H, Amylase Level 51, Lipase 39 Assessment/Plan Assessment/Plan Assessment/Plan left lower quadrant abdominal pain diverticulosis weight loss 20# history of colon polyps Patient admitted and being hydrated plan ct abd/pelvis with contrast in morning await ct scan results to further guide management but will plan on colonoscopy/egd in near future for weight loss, hx of colon polyps will follow, patient understands and agrees with plan Clinical Quality Measures DVT/VTE Risk/Contraindication: Risk Factor Score Per Nursin RFS Level Per Nursing on Admit: 3=High Contraindications-Pharm: Other *list below* Other: surgery possible and h/o hemorrhage TAWNY VICTOR DO Mar 30, 2020 21:21
[2020-03-30] MEDS: inSUlin ASPART (NovoLOG) 1 UNIT/0.01 ML (CHARGE PER UNIT) SC SCH (21:39)
[2020-03-30] MEDS: metroNIDAZOLE 500MG/100ML IVPB 100 ML IV SCH (21:40)
[2020-03-31 00:30] VITALS: BP 130/69
[2020-03-31] MEDS: PIPERACILLIN/TAZOBACTAM (BULK) 4.5 GM in NS (IVPB) 100 ML IV SCH ×3 (00:39→16:52)
[2020-03-31] MEDS: NS IV 1000 ML 1,000 ML IV SCH ×3 (03:13→19:33)
[2020-03-31 04:35] VITALS: BP 158/76
[2020-03-31] MEDS: metroNIDAZOLE 500MG/100ML IVPB 100 ML IV SCH ×3 (05:01→21:34)
[2020-03-31 05:23] LABS: BASOPHILS # (AUTO) 0.1 10^3/uL (0.0-0.1); BASOPHILS % (AUTO) 1 % (0-10); EOSINOPHILS # (AUTO) 0.3 10^3/uL (0.0-0.3); EOSINOPHILS % (AUTO) 5 % (0-10); HEMATOCRIT 36 % (35-52); HEMOGLOBIN 12.2 G/DL (11.5-16.0); LYMPHOCYTES # (AUTO) 2.2 X 10^3 (1.0-4.0); LYMPHOCYTES % (AUTO) 40 % (12-44); MEAN CORPUSCULAR HEMOGLOBIN 29 PG (25-34); MEAN CORPUSCULAR HGB CONC 34 G/DL (32-36); MEAN CORPUSCULAR VOLUME 85 FL (80-99); MEAN PLATELET VOLUME 11.3 FL (7.4-10.4); MONOCYTES # (AUTO) 0.6 X 10^3 (0.0-1.0); MONOCYTES % (AUTO) 11 % (0-12); NEUTROPHILS # (AUTO) 2.4 X 10^3 (1.8-7.8); NEUTROPHILS % (AUTO) 44 % (42-75); PLATELET COUNT 221 10^3/uL (130-400); RED CELL DISTRIBUTION WIDTH 12.7 % (10.0-14.5); WHITE BLOOD COUNT 5.5 10^3/uL (4.3-11.0)
[2020-03-31 05:43] LABS: CHLORIDE 110 MMOL/L (98-107); SODIUM 142 MMOL/L (135-145)
[2020-03-31 05:44] LABS: CALCIUM 9.2 MG/DL (8.5-10.1)
[2020-03-31 05:45] LABS: GLUCOSE 133 MG/DL (70-105)
[2020-03-31 05:46] LABS: CARBON DIOXIDE 21 MMOL/L (21-32); TOTAL PROTEIN 6.8 GM/DL (6.4-8.2)
[2020-03-31 05:47] LABS: BILIRUBIN,TOTAL 0.5 MG/DL (0.1-1.0)
[2020-03-31 05:49] LABS: ALKALINE PHOSPHATASE 61 U/L (40-136); CREATININE SERUM 0.81 MG/DL (0.60-1.30); GFR ESTIMATED > 60
[2020-03-31 05:50] LABS: BUN/CREATININE RATIO 9
[2020-03-31 05:52] LABS: ALANINE AMINOTRANSFERASE 35 U/L (0-55)
[2020-03-31] MEDS: inSUlin ASPART (NovoLOG) 1 UNIT/0.01 ML (CHARGE PER UNIT) SC SCH ×4 (06:00→20:27)
[2020-03-31 08:00] VITALS: BP 148/78
--- NOTE | 2020-03-31 08:40 | Progress Note ---
MACKENZIE BERNARDO MED STUDENT 03/31/20 0840: Progress Note History: Ms. Walker is a 74 year old female who arrived yesterday afternoon after being seen in Clinic. She has finished outpatient treatment for acute diverticulitis and continues to have symptoms, although she reports they have improved somewhat. Admitted last night for observation and for a CT this morning. She reports having LLQ abdominal pain for the past month or so she describes as sharp 8/10 pain that starts around her groin in her LLQ and will radiate back and up towards her hip. Eating exacerbates the pain, particularly meat, and she has reduced the amount she eats, and eats light or bland foods. She reports losing around 20 pounds in the past month or so. Denies feeling feverish, but reports feeling cold at times this month, which is abnormal for her, she usually feels hot. She denies having any constipation or diarrhea, but does report having harder, more frequent stools. Denies having any CP, SOB, palpitations, edema. PE: Patient appears alert and oriented, in no apparent distress -ENT- no neck tenderness, no lymphedema -Cardiac- RRR, no murmur -Pulmonary- CTAB, no wheezes, no crackles -GI- normal bowel sounds, no tenderness to palpation -Extremity- no LE edema, no tenderness to palpation, radial and pedal pulses 2+ Assessment: Acute diverticulitis, failed outpatient treatment History of diverticulosis, polyps on colonoscopy Plan: CT scan today NPO, hold home medications until CT scan report DASHA KRUGER DO 03/31/203: Supervisory-Addendum Brief Verification & Attestation Participated in pt care: history, MDM, physical Personally performed: exam, history, MDM, supervision of care Care discussed with: Medical Student Procedures: n/a Results interpretation: Verified all documentation Verification and Attestation of Medical Student E/M Service A medical student performed and documented this service in my presence. I reviewed and verified all information documented by the medical student and made modifications to such information, when appropriate. I personally performed the physical exam and medical decision making. Dasha Kruger, Mar 31, 2020,21:23 MACKENZIE BERNARDO MED STUDENT Mar 31, 2020 08:40 DASHA KRUGER DO Mar 31, 2020 21:23
--- NOTE | 2020-03-31 08:55 | History & Physical ---
History of Present Illness HPI/Chief Complaint CC: Acute diverticulitis recurrent in type HPI: This is a 74yoWF clinic pt of mine with DM insulin requiring, chronic AF, HTN, HLP who is not an anticoagulation candidate due to bleeding risk who presents to my office as an urgent appointment for recurrent abdominal pain left lower quadrant. She was fully treated with Levaquin and Flagyl two weeks ago, completed that treatment and has not felt any better. Weight loss of 20 lbs in the last two months. Dr. Rangel was consulted, CT scan ordered, labs reviewed, IV fluids and antibiotics initiated. Al Saul MSIV: History: Ms. Walker is a 74 year old female who arrived yesterday afternoon after being seen in Clinic. She has finished outpatient treatment for acute diverticulitis and continues to have symptoms, although she reports they have improved somewhat. Admitted last night for observation and for a CT this morning. She reports having LLQ abdominal pain for the past month or so she describes as sharp 8/10 pain that starts around her groin in her LLQ and will radiate back and up towards her hip. Eating exacerbates the pain, particularly meat, and she has reduced the amount she eats, and eats light or bland foods. She reports losing around 20 pounds in the past month or so. Denies feeling feverish, but reports feeling cold at times this month, which is abnormal for her, she usually feels hot. She denies having any constipation or diarrhea, but does report having harder, more frequent stools. Denies having any CP, SOB, palpitations, edema. PE: Patient appears alert and oriented, in no apparent distress -ENT- no neck tenderness, no lymphedema -Cardiac- RRR, no murmur -Pulmonary- CTAB, no wheezes, no crackles -GI- normal bowel sounds, no tenderness to palpation -Extremity- no LE edema, no tenderness to palpation, radial and pedal pulses 2+ Assessment: Acute diverticulitis, failed outpatient treatment History of diverticulosis, polyps on colonoscopy Plan: CT scan today NPO, hold home medications until CT scan report Source: patient Exam Limitations: no limitations Date Seen 03/31/20 Time Seen by a Provider: 09:00 Attending Physician Dasha Kruger DO PCP Dasha Kruger DO Referring Physician Date of Admission Mar 30, 2020 at 17:41 Home Medications & Allergies Home Medications Reviewed patient Home Medication Reconciliation performed by pharmacy medication reconciliations field service poultry technician and/or nursing. Patients Allergies have been reviewed. Allergies Allergies Coded Allergies diphenhydramine (Verified Allergy, Unknown, 03/30/20) meperidine HCl (Verified Allergy, Unknown, 01/31/16) pravastatin (Verified Allergy, Unknown, 03/30/20) Past Wuhkdtr-Wrcwyf-Rezmen Hx Past Med/Social Hx: Reviewed Nursing Past Med/Soc Hx, Reviewed and Corrections made Patient Social History Marrital Status: Employed/Student: retired Alcohol Use: Denies Use Recreational Drug Use: No Smoking Status: Never a Smoker Former Smoker, Quit: January 30, 1993 2nd Hand Smoke Exposure: No Physical Abuse Screen: Yes Sexual Abuse: No Recent Foreign Travel: No Contact w/other who traveled: No Recent Hopitalizations: No Recent Infectious Disease Expo: No Immunizations Up To Date Tetanus Booster (TDap): Less than 5yrs Date of Pneumonia Vaccine: Jun 10, 2018 Date of Influenza Vaccine: Jun 10, 2018 Seasonal Allergies Seasonal Allergies: No Past Medical History Surgeries: Appendectomy, Bladder Surgery, Eye Surgery, Hysterectomy, Oophorectomy, Rectal Currently Using CPAP: No Currently Using BIPAP: No Cardiac: Atrial Fibrillation, High Cholesterol, Hypertension, Valvular Heart Disease Reproductive: Yes (RECTOCOELE) Sexually Transmitted Disease: No HIV/AIDS: No Female Reproductive Disorders: Denies Hysterectomy, Menopausal Genitourinary: Bladder Infection, UTI-Chronic Gastrointestinal: Diverticulosis, Hemorrhoids Musculoskeletal: Chronic Back Pain Endocrine: Diabetes, Insulin dep Are Your Blood Sugars Over 250: No HEENT: Cataract Psychosocial: Anxiety, Depression History of Blood Disorders: Yes (anemia in past) Family History Colon cancer Congenital heart disease FH: CHF (congestive heart failure) 19 FATHER ( at 48) Hypercholesterolemia G8 SISTER Hypertension G8 SISTER Myocardial infarction 19 FATHER, Onset:30's - 40 (CT at 36) Osteoporosis G8 SISTER CAD Under 55 Years Old Review of Systems Constitutional: malaise, weight loss Gastrointestinal: abdominal pain, nausea Psychiatric/Neurological: Depressed Physical Exam Physical Exam Vital Signs Vital Signs - First Documented 03/30/20 03/30/20 18:35 19:56 Temp 37.2 Pulse 66 Resp 16 B/P (MAP) 162/73 Pulse Ox 96 O2 Delivery Room Air Capillary Refill : Less Than 3 Seconds Height, Weight, BMI Height: 5'4.00" Weight: 160lbs. 0.0oz. 72.287494ov; 25.34 BMI Method:Stated General Appearance: No Apparent Distress, WD/WN, Chronically ill Eyes: Bilateral Eye Normal Inspection, Bilateral Eye PERRL HEENT: PERRL/EOMI, Normal ENT Inspection, Pharynx Normal Neck: Full Range of Motion, Normal Inspection, Non Tender, Supple, Carotid Bruit Respiratory: Chest Non Tender, Lungs Clear, Normal Breath Sounds, No Accessory Muscle Use, No Respiratory Distress Cardiovascular: Regular Rate, Rhythm, No Edema, No Gallop, No JVD, No Murmur, Normal Peripheral Pulses Gastrointestinal: Normal Bowel Sounds, No Organomegaly, No Pulsatile Mass, Soft, Tenderness (LLQ) Back: Normal Inspection, No CVA Tenderness, No Vertebral Tenderness Extremity: Normal Capillary Refill, Normal Inspection, Normal Range of Motion, Non Tender, No Calf Tenderness, No Pedal Edema Neurologic/Psychiatric: Alert, Oriented x3, No Motor/Sensory Deficits, Normal Mood/Affect Skin: Normal Color, Warm/Dry Lymphatic: No Adenopathy Results Results/Procedures Labs Laboratory Tests 03/30/20 18:15 03/31/20 04:50 Patient resulted labs reviewed. Assessment/Plan Admission Diagnosis 03/31/20: Assessment: Acute Diverticulitis failed outpatient treatment Abdominal pain 20lb. weight loss DM Insulin requiring HTN HLP AF Bleeding risk with anti-coagulation Plan: Dr. Rangel consultation Check CT scan Check labs IV fluid IV Antibiotics Admission Status: Inpatient Order (span 2 midnights) (Recurrent acute Diverticulitis) Reason for Inpatient Admission: Recurrent acute Diverticulitis Diagnosis/Problems Diagnosis/Problems (1) Acute diverticulitis (2) Atrial fibrillation (3) Diabetes mellitus (4) Hypertension (5) Weight loss (6) Hyperlipemia (7) Anticoagulant-induced bleeding Clinical Quality Measures DVT/VTE Risk/Contraindication: Risk Factor Score Per Nursin RFS Level Per Nursing on Admit: 3=High Contraindications-Pharm: Other *list below* Other: surgery possible and h/o hemorrhage DASHA KRUGER DO Mar 31, 2020 08:55
[2020-03-31] MEDS: polyethylene glycoL POWDER 17 GM (MIRALAX) PACK PO SCH ×2 (09:00→20:43)
[2020-03-31] MEDS ORDERED: amLODIPine 5 MG (NORVASC) TAB PO NR (09:39)
[2020-03-31] MEDS ORDERED: ALPRAZolam 0.5 MG (XANAX) TAB PO PRN (09:45)
[2020-03-31] MEDS ORDERED: NS 100 ML (IVPB) BAG IV ONE (10:30)
[2020-03-31] MEDS ORDERED: IOHEXOL 350 MG/ML 100 ML (OMNIPAQUE 350) VIAL IV ONE (10:30)
[2020-03-31] MEDS ORDERED: HOLD METFORMIN - RECEIVED CONTRAST 20 ML VIAL IV SCH (10:30)
--- NOTE | 2020-03-31 11:32 | Diagnostic Imaging Report ---
EXAMINATION: CT Abdomen and Pelvis with intravenous contrast. TECHNIQUE: Multiple contiguous axial images were obtained through the abdomen and pelvis after the uneventful administration of intravenous contrast. All CT scans use one or more of the following dose optimizing techniques: automated exposure control, MA and/or KvP adjustment based on a patient size and exam type, or iterative reconstruction. HISTORY: Left-sided abdominal pain COMPARISON: 04/04/2019 FINDINGS: Limited views of the lower thorax show moderate steatosis. The liver is normal without focal lesion. There is no biliary ductal dilation. Gallbladder is normal. Pancreas is normal. Spleen is normal. Adrenal glands are normal. The kidneys are normal. There is no hydronephrosis. Urinary bladder is normal. There is mild sigmoid: Diverticulitis. No abscess or perforation. No free fluid or air. No abdominal or pelvic lymphadenopathy. Aorta is normal in caliber without aneurysm. There are no suspicious osseus lesions. IMPRESSION: 1. Mild sigmoid colon diverticulitis without abscess or perforation. Dictated by: Dictated on workstation # [id number]
[2020-03-31 12:00] VITALS: BP 148/88
[2020-03-31 15:55] VITALS: BP 140/85
[2020-03-31] MEDS: ALPRAZolam 0.25 MG (XANAX) TAB PO PRN (16:56)
[2020-03-31] MEDS: HYDROcodone/APAP 5 MG/325 MG (LORTAB) TAB PO PRN (16:56)
--- NOTE | 2020-03-31 19:29 | Progress Note - Surgery ---
Subjective Date Seen by a Provider: Mar 31, 2020 Time Seen by a Provider: 17:00 Subjective/Events-last exam Patient still with left lower quadrant pain. Less today. Wanting something to drink, currently NPO. Still feels weak. No nausea or vomiting. Denies fever sweats chills shortness of breath or chest pain. Patient ct abd/pelvis today showing findings consistent with diverticulitis. Objective Exam Vital Signs Date Time Temp Pulse Resp B/P (MAP) Pulse Ox O2 Delivery O2 Flow Rate FiO2 03/31/20 15:55 37.2 79 15 140/85 (103) 96 Room Air 03/31/20 12:00 36.7 79 20 148/88 (108) 98 Room Air 03/31/20 08:45 98 Room Air 03/31/20 08:00 36.5 63 20 148/78 (101) 97 Room Air 03/31/20 04:35 37.1 54 14 158/76 (103) 97 Room Air 03/31/20 00:30 36.4 61 16 130/69 (89) 96 Room Air 03/30/20 20:35 Room Air 03/30/20 19:58 37.2 66 16 162/73 (102) 96 Room Air 03/30/20 19:56 37.2 66 16 162/73 96 Room Air I & O 03/31/20 06:59 Intake Total 1720 ml Balance 1720 ml Capillary Refill : Less Than 3 Seconds General Appearance: No Apparent Distress (laying in bed) HEENT: PERRL/EOMI, Normal ENT Inspection Neck: Normal Inspection, Non Tender, Supple Respiratory: Chest Non Tender, No Accessory Muscle Use, No Respiratory Distress Cardiovascular: Regular Rate, Rhythm, No Edema Gastrointestinal: soft; No guarding, No rebound; tenderness (mild left lower quadrant); No mass Extremity: Non Tender, No Calf Tenderness Neurologic/Psychiatric: Alert, Oriented x3, No Motor/Sensory Deficits, Normal Mood/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, 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 Norm as Tested Skin: Normal Color, Warm/Dry Lymphatic: No Adenopathy Results Lab Laboratory Tests 03/30/20 21:33: Glucometer 158H 03/31/20 04:50: White Blood Count 5.5, Red Blood Count 4.26L, Hemoglobin 12.2, Hematocrit 36, Mean Corpuscular Volume 85, Mean Corpuscular Hemoglobin 29, Mean Corpuscular Hemoglobin Concent 34, Red Cell Distribution Width 12.7, Platelet Count 221, Mean Platelet Volume 11.3H, Neutrophils (%) (Auto) 44, Lymphocytes (%) (Auto) 40, Monocytes (%) (Auto) 11, Eosinophils (%) (Auto) 5, Basophils (%) (Auto) 1, Neutrophils # (Auto) 2.4, Lymphocytes # (Auto) 2.2, Monocytes # (Auto) 0.6, Eosinophils # (Auto) 0.3, Basophils # (Auto) 0.1, Sodium Level 142, Potassium Level 4.0, Chloride Level 110H, Carbon Dioxide Level 21, Anion Gap 11, Blood Urea Nitrogen 7, Creatinine 0.81, Estimat Glomerular Filtration Rate > 60, BUN/Creatinine Ratio 9, Glucose Level 133H, Calcium Level 9.2, Corrected Calcium 9.2, Total Bilirubin 0.5, Aspartate Amino Transf (AST/SGOT) 29, Alanine Aminotransferase (ALT/SGPT) 35, Alkaline Phosphatase 61, Total Protein 6.8, Albumin 4.0 03/31/20 10:24: Glucometer 204H 03/31/20 15:41: Glucometer 165H Assessment/Plan Assessment/Plan Assessment/Plan left lower quadrant abdominal pain recurrent diverticulitis failed outpatient management weight loss 20# history of colon polyps ct abd/pelvis c/w diverticulitis, no perforation will plan on colonoscopy/egd in near future for weight loss, hx of colon polyps start clears since feeling a little better today and less pain on exam Continue antibiotics will follow, patient understands and agrees with plan Clinical Quality Measures DVT/VTE Risk/Contraindication: Risk Factor Score Per Nursin RFS Level Per Nursing on Admit: 3=High Contraindications-Pharm: Other *list below* Other: surgery possible and h/o hemorrhage TAWNY VICTOR DO Mar 31, 2020 19:29
[2020-03-31 20:18] VITALS: BP 148/81
[2020-03-31] MEDS: LORATADINE (CLARITIN) 10 MG TAB PO SCH (20:43)
[2020-03-31] MEDS: ATENOLOL 50 MG (TENORMIN) TAB PO SCH (20:43)
[2020-04-01] VITALS: BP 155/84
[2020-04-01] MEDS: PIPERACILLIN/TAZOBACTAM (BULK) 4.5 GM in NS (IVPB) 100 ML IV SCH ×4 (00:04→23:58)
[2020-04-01 04:00] VITALS: BP 118/67
[2020-04-01] MEDS: LEVOTHYROXINE 75 MCG (LEVOTHROID) TABLET PO SCH (05:40)
[2020-04-01] MEDS: metroNIDAZOLE 500MG/100ML IVPB 100 ML IV SCH ×3 (05:41→21:12)
[2020-04-01 05:59] LABS: BASOPHILS # (AUTO) 0.1 10^3/uL (0.0-0.1); BASOPHILS % (AUTO) 1 % (0-10); EOSINOPHILS # (AUTO) 0.3 10^3/uL (0.0-0.3); EOSINOPHILS % (AUTO) 6 % (0-10); HEMATOCRIT 36 % (35-52); HEMOGLOBIN 12.4 G/DL (11.5-16.0); LYMPHOCYTES # (AUTO) 1.6 X 10^3 (1.0-4.0); LYMPHOCYTES % (AUTO) 30 % (12-44); MEAN CORPUSCULAR HEMOGLOBIN 29 PG (25-34); MEAN CORPUSCULAR HGB CONC 34 G/DL (32-36); MEAN CORPUSCULAR VOLUME 85 FL (80-99); MONOCYTES # (AUTO) 0.6 X 10^3 (0.0-1.0); MONOCYTES % (AUTO) 11 % (0-12); NEUTROPHILS # (AUTO) 2.8 X 10^3 (1.8-7.8); NEUTROPHILS % (AUTO) 52 % (42-75); PLATELET COUNT 212 10^3/uL (130-400); RED CELL DISTRIBUTION WIDTH 12.9 % (10.0-14.5); WHITE BLOOD COUNT 5.5 10^3/uL (4.3-11.0)
[2020-04-01 06:06] LABS: ALBUMIN 3.9 GM/DL (3.2-4.5); CHLORIDE 112 MMOL/L (98-107); POTASSIUM 3.6 MMOL/L (3.6-5.0); SODIUM 142 MMOL/L (135-145)
[2020-04-01 06:07] LABS: CALCIUM 9.1 MG/DL (8.5-10.1)
[2020-04-01 06:08] LABS: GLUCOSE 146 MG/DL (70-105); TOTAL PROTEIN 6.6 GM/DL (6.4-8.2)
[2020-04-01 06:09] LABS: CARBON DIOXIDE 19 MMOL/L (21-32)
[2020-04-01 06:10] LABS: BILIRUBIN,TOTAL 0.5 MG/DL (0.1-1.0)
[2020-04-01] MEDS: inSUlin ASPART (NovoLOG) 1 UNIT/0.01 ML (CHARGE PER UNIT) SC SCH ×4 (06:11→20:15)
[2020-04-01 06:12] LABS: ALKALINE PHOSPHATASE 58 U/L (40-136); CREATININE SERUM 0.76 MG/DL (0.60-1.30); GFR ESTIMATED > 60
[2020-04-01 06:13] LABS: BUN/CREATININE RATIO 12
[2020-04-01 06:15] LABS: ALANINE AMINOTRANSFERASE 35 U/L (0-55)
--- NOTE | 2020-04-01 06:23 | Progress Note ---
Subjective Date Seen by a Provider: Apr 01, 2020 Time Seen by a Provider: 10:15 Subjective/Events-last exam Pt doing a lot better today Only mild pain in the left lower quadrant Labs reviewed, everything within normal limits Blood sugars are reasonable BP improved with home meds Will ambulate in halls today Overall much improved status Will definitely need a colonoscopy as an outpatient Does not appear to be ischemic related or embolic Review of Systems Gastrointestinal: Abdominal Pain Objective Exam Last Set of Vital Signs Vital Signs Date Time Temp Pulse Resp B/P (MAP) Pulse Ox O2 Delivery O2 Flow Rate FiO2 04/01/20 04:00 36.7 58 20 118/67 (84) 98 Room Air Capillary Refill : Less Than 3 Seconds I&O Intake and Output 04/01/20 00:00 Intake Total 1420 ml Balance 1420 ml Intake Oral 200 ml IV Total 1220 ml # Voids 14 General: Alert, Oriented X3, Cooperative, No Acute Distress HEENT: Atraumatic, PERRLA Neck: Supple, No JVD, No Thyromegaly Lungs: Clear to Auscultation, Normal Air Movement Heart: Regular Rate, Normal S1, Normal S2, No Murmurs Abdomen: Normal Bowel Sounds, Soft, No Tenderness, No Hepatosplenomegaly, No Masses Extremities: No Clubbing, No Cyanosis, No Edema, Normal Pulses, No Tenderness/Swelling Skin: No Rashes, No Breakdown, No Significant Lesion Neuro: Normal Gait, Normal Speech, Strength at 5/5 X4 Ext, Normal Tone Psych/Mental Status: Mental Status NL, Mood NL Results Lab Laboratory Tests 03/31/20 10:24: Glucometer 204H 03/31/20 15:41: Glucometer 165H 03/31/20 20:03: Glucometer 110 04/01/20 05:21: White Blood Count 5.5, Red Blood Count 4.28L, Hemoglobin 12.4, Hematocrit 36, Mean Corpuscular Volume 85, Mean Corpuscular Hemoglobin 29, Mean Corpuscular Hemoglobin Concent 34, Red Cell Distribution Width 12.9, Platelet Count 212, Mean Platelet Volume 11.0H, Neutrophils (%) (Auto) 52, Lymphocytes (%) (Auto) 30, Monocytes (%) (Auto) 11, Eosinophils (%) (Auto) 6, Basophils (%) (Auto) 1, Neutrophils # (Auto) 2.8, Lymphocytes # (Auto) 1.6, Monocytes # (Auto) 0.6, Eosinophils # (Auto) 0.3, Basophils # (Auto) 0.1, Sodium Level 142, Potassium Level 3.6, Chloride Level 112H, Carbon Dioxide Level 19L, Anion Gap 11, Blood Urea Nitrogen 9, Creatinine 0.76, Estimat Glomerular Filtration Rate > 60, BUN/Creatinine Ratio 12, Glucose Level 146H, Calcium Level 9.1, Corrected Calcium 9.2, Total Bilirubin 0.5, Aspartate Amino Transf (AST/SGOT) 34, Alanine Aminotransferase (ALT/SGPT) 35, Alkaline Phosphatase 58, Total Protein 6.6, Albumin 3.9 04/01/20 06:13: Glucometer 162H Assessment/Plan Assessment/Plan Assess & Plan/Chief Complaint Assessment: Acute diverticulitis Failed outpatient treatment History of diverticulosis Polyps on colonoscopy Plan: CT scan reviewed CLD Hold home medications until CT scan report 04/01/20: Ambulate the halls today Change IV fluids to LR Dietary consult due to Diverticulitis and Diabetes and weight loss Discharge home tomorrow Diagnosis/Problems Diagnosis/Problems (1) Acute diverticulitis (2) Atrial fibrillation (3) Diabetes mellitus (4) Hypertension (5) Weight loss (6) Hyperlipemia (7) Anticoagulant-induced bleeding Clinical Quality Measures DVT/VTE Risk/Contraindication: Risk Factor Score Per Nursin RFS Level Per Nursing on Admit: 3=High Contraindications-Pharm: Other *list below* Other: surgery possible and h/o hemorrhage WASHINGTON KRUGER DO Apr 01, 2020 06:23
[2020-04-01 08:00] VITALS: BP 167/82
[2020-04-01] MEDS: amLODIPine 5 MG (NORVASC) TAB PO SCH (08:44)
[2020-04-01] MEDS: polyethylene glycoL POWDER 17 GM (MIRALAX) PACK PO SCH ×2 (08:44→19:46)
[2020-04-01] MEDS: ATENOLOL 50 MG (TENORMIN) TAB PO SCH ×2 (08:44→19:46)
[2020-04-01] MEDS: PANTOPRAZOLE 20 MG TABLET (PROTONIX) PO SCH (08:44)
--- NOTE | 2020-04-01 09:05 | Progress Note ---
MACKENZIE BERNARDO MED STUDENT 04/01/20 0905: Progress Note Subjective: Ms. Walker reports continued LLQ pain today. The pain is not radiating to her hip and back at this time, and it is not exacerbated by palpation or change of position. She does report difficulty sleeping on her left side due to the pain. She did not eat breakfast this morning since eating frequently exacerbates her pain. She reports having constipation, has not started miralax yet. She has had frequent urination since starting the IV. Denies any fevers, chills, CP, SOB, nausea/vomiting, diarrhea, dysuria. Objective: HR 58, RR 20, BP 118/67 Patient appears alert and oriented -Cardiac- RRR, no murmurs -Pulmonary- CTAB, no wheezes, no crackles -GI- no tenderness to palpation, no masses palpated CT impression 03/31 - Mild sigmoid colon diverticulitis without abscess or perforation. Assessment/Plan: Mild sigmoid colon diverticulitis continue IV antibiotics, IV fluids Weight loss will see detail sergeant, plan colonoscopy with Dr. Rangel DM continue home medications, will see detail sergeant HTN continue home medications HLPD continue home medications PAF Bleeding risk w/ anticoagulation DASHA KRUGER DO 04/01/202043: Supervisory-Addendum Brief Verification & Attestation Participated in pt care: history, MDM, physical Personally performed: exam, history, MDM, supervision of care Care discussed with: Medical Student Procedures: n/a Results interpretation: Verified all documentation Verification and Attestation of Medical Student E/M Service A medical student performed and documented this service in my presence. I reviewed and verified all information documented by the medical student and made modifications to such information, when appropriate. I personally performed the physical exam and medical decision making. Dasha Kruger, Apr 01, 2020,20:43 MACKENZIE BERNARDO MED STUDENT Apr 01, 2020 09:05 DASHA KRUGER DO Apr 01, 2020 20:44
[2020-04-01 11:41] VITALS: BP 163/83
[2020-04-01] MEDS: LACTATED RINGERS 1,000 ML IV SCH ×2 (13:09→21:12)
[2020-04-01 16:25] VITALS: BP 153/83
--- NOTE | 2020-04-01 16:44 | Progress Note - Surgery ---
Subjective Date Seen by a Provider: Apr 01, 2020 Time Seen by a Provider: 10:21 Subjective/Events-last exam Feeling a little better. LLQ abd pain still present but not as intense. Still feeling weak. Tolerating clears. Denies n/v fever sweats chills shortness of breath or chest pain. Objective Exam Vital Signs Date Time Temp Pulse Resp B/P (MAP) Pulse Ox O2 Delivery O2 Flow Rate FiO2 04/01/20 16:25 36.7 56 18 153/83 (106) 98 Room Air 04/01/20 11:41 36.4 62 18 163/83 (109) 97 Room Air 04/01/20 09:00 98 Room Air 04/01/20 08:00 36.6 50 20 167/82 (110) 96 Room Air 04/01/20 04:00 36.7 58 20 118/67 (84) 98 Room Air 04/01/20 00:00 36.5 51 20 155/84 (107) 97 Room Air 03/31/20 20:18 36.2 68 18 148/81 (103) 95 Room Air 03/31/20 19:10 Room Air I & O 04/01/20 07:00 Intake Total 300 ml Balance 300 ml Capillary Refill : Less Than 3 Seconds General Appearance: No Apparent Distress, WD/WN, Chronically ill HEENT: PERRL/EOMI, Normal ENT Inspection, Pharynx Normal Neck: Full Range of Motion, Normal Inspection, Non Tender, Supple Respiratory: Chest Non Tender, Normal Breath Sounds, No Accessory Muscle Use, No Respiratory Distress Cardiovascular: Regular Rate, Rhythm, No Edema, Normal Peripheral Pulses Gastrointestinal: soft, no organomegaly; No guarding, No rebound; tenderness (mild left lower quadrant-less); No mass Extremity: Normal Inspection, Normal Range of Motion, Non Tender, No Calf Tenderness, No Pedal Edema Neurologic/Psychiatric: Alert, Oriented x3, No Motor/Sensory Deficits, Normal Mood/Affect Skin: Normal Color, Warm/Dry Lymphatic: No Adenopathy Results Lab Laboratory Tests 03/31/20 20:03: Glucometer 110 04/01/20 05:21: White Blood Count 5.5, Red Blood Count 4.28L, Hemoglobin 12.4, Hematocrit 36, Mean Corpuscular Volume 85, Mean Corpuscular Hemoglobin 29, Mean Corpuscular Hemoglobin Concent 34, Red Cell Distribution Width 12.9, Platelet Count 212, Mean Platelet Volume 11.0H, Neutrophils (%) (Auto) 52, Lymphocytes (%) (Auto) 30, Monocytes (%) (Auto) 11, Eosinophils (%) (Auto) 6, Basophils (%) (Auto) 1, Neutrophils # (Auto) 2.8, Lymphocytes # (Auto) 1.6, Monocytes # (Auto) 0.6, Eosinophils # (Auto) 0.3, Basophils # (Auto) 0.1, Sodium Level 142, Potassium Level 3.6, Chloride Level 112H, Carbon Dioxide Level 19L, Anion Gap 11, Blood Urea Nitrogen 9, Creatinine 0.76, Estimat Glomerular Filtration Rate > 60, BUN/Creatinine Ratio 12, Glucose Level 146H, Calcium Level 9.1, Corrected Calcium 9.2, Total Bilirubin 0.5, Aspartate Amino Transf (AST/SGOT) 34, Alanine Aminotransferase (ALT/SGPT) 35, Alkaline Phosphatase 58, Total Protein 6.6, Albumin 3.9 04/01/20 06:13: Glucometer 162H 04/01/20 11:23: Glucometer 160H Assessment/Plan Assessment/Plan Assessment/Plan Acute diverticulitis Failed outpatient treatment History of diverticulosis Hisotry of Polyps Weight loss Will continue antibiotics Slowly advance diet as pain decreases. Will need egd/colonoscopy in about 6 weeks after pain resolved. Clinical Quality Measures DVT/VTE Risk/Contraindication: Risk Factor Score Per Nursin RFS Level Per Nursing on Admit: 3=High Contraindications-Pharm: Other *list below* Other: surgery possible and h/o hemorrhage TAWNY VICTOR DO Apr 01, 2020 16:44
[2020-04-01] MEDS: ALPRAZolam 0.25 MG (XANAX) TAB PO PRN (19:03)
[2020-04-01] MEDS: HYDROcodone/APAP 5 MG/325 MG (LORTAB) TAB PO PRN (19:04)
[2020-04-01] MEDS: LORATADINE (CLARITIN) 10 MG TAB PO SCH (19:46)
[2020-04-01 19:54] VITALS: BP 168/91
[2020-04-02 00:47] VITALS: BP 170/83
[2020-04-02] MEDS: LACTATED RINGERS 1,000 ML IV SCH (03:38)
[2020-04-02] MEDS: metroNIDAZOLE 500MG/100ML IVPB 100 ML IV SCH (06:02)
[2020-04-02] MEDS: LEVOTHYROXINE 75 MCG (LEVOTHROID) TABLET PO SCH (06:02)
[2020-04-02 06:04] LABS: BASOPHILS # (AUTO) 0.1 10^3/uL (0.0-0.1); BASOPHILS % (AUTO) 1 % (0-10); EOSINOPHILS # (AUTO) 0.5 10^3/uL (0.0-0.3); EOSINOPHILS % (AUTO) 9 % (0-10); HEMATOCRIT 37 % (35-52); HEMOGLOBIN 12.5 G/DL (11.5-16.0); LYMPHOCYTES # (AUTO) 1.4 X 10^3 (1.0-4.0); LYMPHOCYTES % (AUTO) 25 % (12-44); MEAN CORPUSCULAR HEMOGLOBIN 29 PG (25-34); MEAN CORPUSCULAR HGB CONC 34 G/DL (32-36); MEAN CORPUSCULAR VOLUME 85 FL (80-99); MEAN PLATELET VOLUME 11.1 FL (7.4-10.4); MONOCYTES # (AUTO) 0.6 X 10^3 (0.0-1.0); MONOCYTES % (AUTO) 11 % (0-12); NEUTROPHILS % (AUTO) 55 % (42-75); PLATELET COUNT 218 10^3/uL (130-400); RED CELL DISTRIBUTION WIDTH 12.6 % (10.0-14.5); WHITE BLOOD COUNT 5.5 10^3/uL (4.3-11.0)
[2020-04-02] MEDS: inSUlin ASPART (NovoLOG) 1 UNIT/0.01 ML (CHARGE PER UNIT) SC SCH ×2 (06:04→11:19)
[2020-04-02 06:11] LABS: ALBUMIN 4.2 GM/DL (3.2-4.5); CHLORIDE 109 MMOL/L (98-107); POTASSIUM 3.6 MMOL/L (3.6-5.0); SODIUM 140 MMOL/L (135-145)
[2020-04-02 06:13] LABS: CALCIUM 9.3 MG/DL (8.5-10.1)
[2020-04-02 06:14] LABS: GLUCOSE 166 MG/DL (70-105); TOTAL PROTEIN 7.1 GM/DL (6.4-8.2)
[2020-04-02 06:15] LABS: CARBON DIOXIDE 19 MMOL/L (21-32)
[2020-04-02 06:16] LABS: BILIRUBIN,TOTAL 0.5 MG/DL (0.1-1.0)
[2020-04-02 06:17] LABS: ALKALINE PHOSPHATASE 58 U/L (40-136); CREATININE SERUM 0.77 MG/DL (0.60-1.30); GFR ESTIMATED > 60
[2020-04-02 06:18] LABS: BUN/CREATININE RATIO 8
[2020-04-02 06:20] LABS: ALANINE AMINOTRANSFERASE 35 U/L (0-55)
[2020-04-02 08:00] VITALS: BP 175/79
[2020-04-02] MEDS: polyethylene glycoL POWDER 17 GM (MIRALAX) PACK PO SCH (08:06)
--- NOTE | 2020-04-02 08:44 | Progress Note ---
MACKENZIE BERNARDO MED STUDENT 04/02/20 0844: Progress Note Hospital Course: Ms. Walker is a 74 year old female who arrived the afternoon of 03/30 after being seen in clinic by Dr. Kruger. She had finished outpatient treatment for acute diverticulitis and was continuing to have symptoms, although she reported they had improved somewhat. She was having LLQ abdominal pain for the past month or so she describes as sharp 8/10 pain that starts around her groin in her LLQ and will radiate back and up towards her hip, exacerbated by eating. She has reduced the amount she eats, reports losing around 20 pounds in the past month or so. She was started on IV fluids and IV Zosyn and Metronidazole. She had a CT scan 03/31 which reported mild sigmoid colon diverticulitis without abscess or perforation. After admission, she reported that she had constipation, first bowel movement 04/02 after taking miralax. Her pain has improved, rated 2/10 on 04/02, no longer radiating to hip and back, no longer exacerbated by palpation or movement. Did not eat solid foods, awaiting visit with geodetic technician prior to discharge. Plan to continue antibiotics as an outpatient, slowly advance diet, see Dr. Rangel for endoscopy after resolution of pain. DASHA KRUGER DO 04/02/20 1222: Supervisory-Addendum Brief Verification & Attestation Participated in pt care: history, MDM, physical Personally performed: exam, history, MDM, supervision of care Care discussed with: Medical Student Procedures: n/a Results interpretation: Verified all documentation Verification and Attestation of Medical Student E/M Service A medical student performed and documented this service in my presence. I reviewed and verified all information documented by the medical student and made modifications to such information, when appropriate. I personally performed the physical exam and medical decision making. Dasha Kruger, Apr 02, 2020,12:22 MACKENZIE BERNARDO MED STUDENT Apr 02, 2020 08:44 DASHA KRUGER DO Apr 02, 2020 12:22
[2020-04-02] MEDS: PANTOPRAZOLE 20 MG TABLET (PROTONIX) PO SCH (09:07)
[2020-04-02] MEDS: amLODIPine 5 MG (NORVASC) TAB PO SCH (09:07)
[2020-04-02] MEDS: PIPERACILLIN/TAZOBACTAM (BULK) 4.5 GM in NS (IVPB) 100 ML IV SCH (09:08)
[2020-04-02] MEDS: ATENOLOL 50 MG (TENORMIN) TAB PO SCH (09:10)
[2020-04-02] MEDS ORDERED: ACID1TAB5 PO (10:32)
[2020-04-02] MEDS ORDERED: HYDR-83 PO (10:32)
[2020-04-02] MEDS ORDERED: AMOX-358 PO (10:32)
[2020-04-02] MEDS ORDERED: METR500T PO (10:32)
--- NOTE | 2020-04-02 10:35 | Discharge Summary ---
Diagnosis/Chief Complaint Date of Admission Mar 30, 2020 at 17:41 Date of Discharge Discharge Date: Apr 02, 2020 Discharge Diagnosis Assessment: Acute diverticulitis Failed outpatient treatment History of diverticulosis Polyps on colonoscopy Plan: CT scan reviewed CLD Hold home medications until CT scan report 04/01/20: Ambulate the halls today Change IV fluids to LR Dietary consult due to Diverticulitis and Diabetes and weight loss Discharge home today Discharge Summary Discharge Physical Examination Allergies: Coded Allergies: diphenhydramine (Verified Allergy, Unknown, 03/30/20) meperidine HCl (Verified Allergy, Unknown, 01/31/16) pravastatin (Verified Allergy, Unknown, 03/30/20) Vitals & I&Os Vital Signs Date Time Temp Pulse Resp B/P (MAP) Pulse Ox O2 Delivery O2 Flow Rate FiO2 04/02/20 08:00 36.6 60 20 175/79 (111) 99 Room Air Hospital Course Was the Problem List Reviewed?: Yes Hospital Course per Al Saul, MSIV: Ms. Walker is a 74 year old female who arrived the afternoon of 03/30 after being seen in clinic by Dr. Kruger. She had finished outpatient treatment for acute diverticulitis and was continuing to have symptoms, although she reported they had improved somewhat. She was having LLQ abdominal pain for the past month or so she describes as sharp 8/10 pain that starts around her groin in her LLQ and will radiate back and up towards her hip, exacerbated by eating. She has reduced the amount she eats, reports losing around 20 pounds in the past month or so. She was started on IV fluids and IV Zosyn and Metronidazole. She had a CT scan 03/31 which reported mild sigmoid colon diverticulitis without abscess or perforation. After admission, she reported that she had constipation, first bowel movement 04/02 after taking miralax. Her pain has improved, rated 2/10 on 04/02, no longer radiating to hip and back, no longer exacerbated by palpation or movement. Did not eat solid foods, awaiting visit with painting department supervisor prior to discharge. Plan to continue antibiotics as an outpatient, slowly advance diet, see Dr. Rangel for endoscopy after resolution of pain. Verification and Attestation of Medical Student E/M Service A medical student performed and documented this service in my presence. I reviewed and verified all information documented by the medical student and made modifications to such information, when appropriate. I personally performed the physical exam and medical decision making. Dasha Kruger, Apr 02, 2020,12:24 Labs (last 24 hrs) Laboratory Tests 03/30/20 18:15: White Blood Count 7.0, Red Blood Count 4.43, Hemoglobin 12.9, Hematocrit 37, Mean Corpuscular Volume 84, Mean Corpuscular Hemoglobin 29, Mean Corpuscular Hemoglobin Concent 35, Red Cell Distribution Width 12.6, Platelet Count 254, Mean Platelet Volume 11.0H, Neutrophils (%) (Auto) 51, Lymphocytes (%) (Auto) 34, Monocytes (%) (Auto) 10, Eosinophils (%) (Auto) 4, Basophils (%) (Auto) 1, Neutrophils # (Auto) 3.5, Lymphocytes # (Auto) 2.4, Monocytes # (Auto) 0.7, Eosinophils # (Auto) 0.3, Basophils # (Auto) 0.1, Erythrocyte Sedimentation Rate 14, Sodium Level 138, Potassium Level 4.0, Chloride Level 105, Carbon Dioxide Level 21, Anion Gap 12, Blood Urea Nitrogen 10, Creatinine 0.77, Estimat Glomerular Filtration Rate > 60, BUN/Creatinine Ratio 13, Glucose Level 162H, Calcium Level 10.2H, Corrected Calcium , Total Bilirubin 0.3, Aspartate Amino Transf (AST/SGOT) 34, Alanine Aminotransferase (ALT/SGPT) 43, Alkaline Phosphatase 73, Total Protein 7.8, Albumin 4.6H, Amylase Level 51, Lipase 39 03/30/20 21:33: Glucometer 158H 03/31/20 04:50: White Blood Count 5.5, Red Blood Count 4.26L, Hemoglobin 12.2, Hematocrit 36, Mean Corpuscular Volume 85, Mean Corpuscular Hemoglobin 29, Mean Corpuscular Hemoglobin Concent 34, Red Cell Distribution Width 12.7, Platelet Count 221, Mean Platelet Volume 11.3H, Neutrophils (%) (Auto) 44, Lymphocytes (%) (Auto) 40, Monocytes (%) (Auto) 11, Eosinophils (%) (Auto) 5, Basophils (%) (Auto) 1, Neutrophils # (Auto) 2.4, Lymphocytes # (Auto) 2.2, Monocytes # (Auto) 0.6, Eosinophils # (Auto) 0.3, Basophils # (Auto) 0.1, Sodium Level 142, Potassium Level 4.0, Chloride Level 110H, Carbon Dioxide Level 21, Anion Gap 11, Blood Urea Nitrogen 7, Creatinine 0.81, Estimat Glomerular Filtration Rate > 60, BUN/Creatinine Ratio 9, Glucose Level 133H, Calcium Level 9.2, Corrected Calcium 9.2, Total Bilirubin 0.5, Aspartate Amino Transf (AST/SGOT) 29, Alanine Aminotransferase (ALT/SGPT) 35, Alkaline Phosphatase 61, Total Protein 6.8, Albumin 4.0 03/31/20 10:24: Glucometer 204H 03/31/20 15:41: Glucometer 165H 03/31/20 20:03: Glucometer 110 04/01/20 05:21: White Blood Count 5.5, Red Blood Count 4.28L, Hemoglobin 12.4, Hematocrit 36, Mean Corpuscular Volume 85, Mean Corpuscular Hemoglobin 29, Mean Corpuscular Hemoglobin Concent 34, Red Cell Distribution Width 12.9, Platelet Count 212, Mean Platelet Volume 11.0H, Neutrophils (%) (Auto) 52, Lymphocytes (%) (Auto) 30, Monocytes (%) (Auto) 11, Eosinophils (%) (Auto) 6, Basophils (%) (Auto) 1, Neutrophils # (Auto) 2.8, Lymphocytes # (Auto) 1.6, Monocytes # (Auto) 0.6, Eosinophils # (Auto) 0.3, Basophils # (Auto) 0.1, Sodium Level 142, Potassium Level 3.6, Chloride Level 112H, Carbon Dioxide Level 19L, Anion Gap 11, Blood Urea Nitrogen 9, Creatinine 0.76, Estimat Glomerular Filtration Rate > 60, BUN/Creatinine Ratio 12, Glucose Level 146H, Calcium Level 9.1, Corrected Calciu m 9.2, Total Bilirubin 0.5, Aspartate Amino Transf (AST/SGOT) 34, Alanine Aminotransferase (ALT/SGPT) 35, Alkaline Phosphatase 58, Total Protein 6.6, Albumin 3.9 04/01/20 06:13: Glucometer 162H 04/01/20 11:23: Glucometer 160H 04/01/20 16:23: Glucometer 110 04/01/20 19:43: Glucometer 172H 04/02/20 05:36: Glucometer 169H 04/02/20 05:49: White Blood Count 5.5, Red Blood Count 4.39, Hemoglobin 12.5, Hematocrit 37, Mean Corpuscular Volume 85, Mean Corpuscular Hemoglobin 29, Mean Corpuscular Hemoglobin Concent 34, Red Cell Distribution Width 12.6, Platelet Count 218, Mean Platelet Volume 11.1H, Neutrophils (%) (Auto) 55, Lymphocytes (%) (Auto) 25, Monocytes (%) (Auto) 11, Eosinophils (%) (Auto) 9, Basophils (%) (Auto) 1, Neutrophils # (Auto) 3.0, Lymphocytes # (Auto) 1.4, Monocytes # (Auto) 0.6, Eosinophils # (Auto) 0.5H, Basophils # (Auto) 0.1, Sodium Level 140, Potassium Level 3.6, Chloride Level 109H, Carbon Dioxide Level 19L, Anion Gap 12, Blood Urea Nitrogen 6L, Creatinine 0.77, Estimat Glomerular Filtration Rate > 60, BUN/Creatinine Ratio 8, Glucose Level 166H, Calcium Level 9.3, Corrected Calcium 9.1, Total Bilirubin 0.5, Aspartate Amino Transf (AST/SGOT) 31, Alanine Aminotransferase (ALT/SGPT) 35, Alkaline Phosphatase 58, Total Protein 7.1, Albumin 4.2 04/02/20 11:04: Glucometer 170H Pending Labs Laboratory Tests 03/30/20 18:15: White Blood Count 7.0, Red Blood Count 4.43, Hemoglobin 12.9, Hematocrit 37, Mean Corpuscular Volume 84, Mean Corpuscular Hemoglobin 29, Mean Corpuscular Hemoglobin Concent 35, Red Cell Distribution Width 12.6, Platelet Count 254, Mean Platelet Volume 11.0, Neutrophils (%) (Auto) 51, Lymphocytes (%) (Auto) 34, Monocytes (%) (Auto) 10, Eosinophils (%) (Auto) 4, Basophils (%) (Auto) 1, Neutrophils # (Auto) 3.5, Lymphocytes # (Auto) 2.4, Monocytes # (Auto) 0.7, Eosinophils # (Auto) 0.3, Basophils # (Auto) 0.1, Erythrocyte Sedimentation Rate 14, Sodium Level 138, Potassium Level 4.0, Chloride Level 105, Carbon Dioxide Level 21, Anion Gap 12, Blood Urea Nitrogen 10, Creatinine 0.77, Estimat Glomerular Filtration Rate > 60, BUN/Creatinine Ratio 13, Glucose Level 162, Calcium Level 10.2, Corrected Calcium , Total Bilirubin 0.3, Aspartate Amino Transf (AST/SGOT) 34, Alanine Aminotransferase (ALT/SGPT) 43, Alkaline Phosphatase 73, Total Protein 7.8, Albumin 4.6, Amylase Level 51, Lipase 39 03/30/20 21:33: Glucometer 158 03/31/20 04:50: White Blood Count 5.5, Red Blood Count 4.26, Hemoglobin 12.2, Hematocrit 36, Mean Corpuscular Volume 85, Mean Corpuscular Hemoglobin 29, Mean Corpuscular Hemoglobin Concent 34, Red Cell Distribution Width 12.7, Platelet Count 221, Mean Platelet Volume 11.3, Neutrophils (%) (Auto) 44, Lymphocytes (%) (Auto) 40, Monocytes (%) (Auto) 11, Eosinophils (%) (Auto) 5, Basophils (%) (Auto) 1, Neutrophils # (Auto) 2.4, Lymphocytes # (Auto) 2.2, Monocytes # (Auto) 0.6, Eosinophils # (Auto) 0.3, Basophils # (Auto) 0.1, Sodium Level 142, Potassium Level 4.0, Chloride Level 110, Carbon Dioxide Level 21, Anion Gap 11, Blood Urea Nitrogen 7, Creatinine 0.81, Estimat Glomerular Filtration Rate > 60, BUN/Creatinine Ratio 9, Glucose Level 133, Calcium Level 9.2, Corrected Calcium 9.2, Total Bilirubin 0.5, Aspartate Amino Transf (AST/SGOT) 29, Alanine Aminotransferase (ALT/SGPT) 35, Alkaline Phosphatase 61, Total Protein 6.8, A lbumin 4.0 03/31/20 10:24: Glucometer 204 03/31/20 15:41: Glucometer 165 03/31/20 20:03: Glucometer 110 04/01/20 05:21: White Blood Count 5.5, Red Blood Count 4.28, Hemoglobin 12.4, Hematocrit 36, Mean Corpuscular Volume 85, Mean Corpuscular Hemoglobin 29, Mean Corpuscular Hemoglobin Concent 34, Red Cell Distribution Width 12.9, Platelet Count 212, Mean Platelet Volume 11.0, Neutrophils (%) (Auto) 52, Lymphocytes (%) (Auto) 30, Monocytes (%) (Auto) 11, Eosinophils (%) (Auto) 6, Basophils (%) (Auto) 1, Neutrophils # (Auto) 2.8, Lymphocytes # (Auto) 1.6, Monocytes # (Auto) 0.6, Eosinophils # (Auto) 0.3, Basophils # (Auto) 0.1, Sodium Level 142, Potassium Level 3.6, Chloride Level 112, Carbon Dioxide Level 19, Anion Gap 11, Blood Urea Nitrogen 9, Creatinine 0.76, Estimat Glomerular Filtration Rate > 60, BUN /Creatinine Ratio 12, Glucose Level 146, Calcium Level 9.1, Corrected Calcium 9.2, Total Bilirubin 0.5, Aspartate Amino Transf (AST/SGOT) 34, Alanine Aminotransferase (ALT/SGPT) 35, Alkaline Phosphatase 58, Total Protein 6.6, Albumin 3.9 04/01/20 06:13: Glucometer 162 04/01/20 11:23: Glucometer 160 04/01/20 16:23: Glucometer 110 04/01/20 19:43: Glucometer 172 04/02/20 05:36: Glucometer 169 04/02/20 05:49: White Blood Count 5.5, Red Blood Count 4.39, Hemoglobin 12.5, Hematocrit 37, Mean Corpuscular Volume 85, Mean Corpuscular Hemoglobin 29, Mean Corpuscular Hemoglobin Concent 34, Red Cell Distribution Width 12.6, Platelet Count 218, Mean Platelet Volume 11.1, Neutrophils (%) (Auto) 55, Lymphocytes (%) (Auto) 25, Monocytes (%) (Auto) 11, Eosinophils (%) (Auto) 9, Basophils (%) (Auto) 1, Neutrophils # (Auto) 3.0, Lymphocytes # (Auto) 1.4, Monocytes # (Auto) 0.6, Eosinophils # (Auto) 0.5, Basophils # (Auto) 0.1, Sodium Level 140, Potassium Level 3.6, Chloride Level 109, Carbon Dioxide Level 19, Anion Gap 12, Blood Urea Nitrogen 6, Creatinine 0.77, Estimat Glomerular Filtration Rate > 60, BUN/Creatinine Ratio 8, Glucose Level 166, Calcium Level 9.3, Corrected Calcium 9.1, Total Bilirubin 0.5, Aspartate Amino Transf (AST/SGOT) 31, Alanine Aminotransferase (ALT/SGPT) 35, Alkaline Phosphatase 58, Total Protein 7.1, Albumin 4.2 04/02/20 11:04: Glucometer 170 Discharge Home Medications: Active Scripts Active Augmentin 875-125 Tablet (Amoxicillin/Potassium Clav) 1 Each Tablet 1 Each PO BID Flagyl (Metronidazole) 500 Mg Tablet 500 Mg PO TID Lactinex Chewable Tablet (L. Acidophilus/Bulgaricus) 1 Each Tab.chew 1 Each PO ACHS Hydrocodone-Acetamin 5-325 mg (Hydrocodone/Acetaminophen) 1 Each Tablet 1 Tab PO Q4H PRN Reported Levemir Flextouch (Insulin Detemir) 100 Unit/1 Ml Insuln.pen 25 Unit SQ HS Glimepiride 2 Mg Tablet 2 Mg PO BID Prilosec Otc (Omeprazole Magnesium) 20 Mg Tablet.dr 20 Mg PO DAILY Fenofibrate (Fenofibrate Nanocrystallized) 145 Mg Tablet 145 Mg PO HS Levothyroxine Sodium 75 Mcg Tablet 75 Mcg PO DAILY Zyrtec (Cetirizine HCl) 10 Mg Tablet 10 Mg PO HS Fish Oil 1,000 mg Softgel ([place]-3/Dha/Epa/Fish Oil) 1 Each Capsule 1,000 Mg PO EVERY EVENING Atenolol 50 Mg Tablet 50 Mg PO HS Amlodipine Besylate 10 Mg Tablet 10 Mg PO DAILY Atenolol 100 Mg Tablet 100 Mg PO DAILY Alprazolam 0.5 Mg Tablet 0.5 Mg PO EVERY 6-8 HOURS PRN Fish Oil 1,000 mg Softgel ([place]-3/Dha/Epa/Fish Oil) 1 Each Capsule 2,000 Mg PO DAILY Vitamin D3 (Cholecalciferol (Vitamin D3)) 1,000 Unit Capsule 1,000 Unit PO DAILY Instructions to patient/family Please see electronic discharge instructions given to patient. Diagnosis/Problems Diagnosis/Problems (1) Acute diverticulitis (2) Atrial fibrillation (3) Diabetes mellitus (4) Hypertension (5) Weight loss (6) Hyperlipemia (7) Anticoagulant-induced bleeding Clinical Quality Measures DVT/VTE Risk/Contraindication: Risk Factor Score Per Nursin RFS Level Per Nursing on Admit: 3=High Contraindications-Pharm: Other *list below* Other: surgery possible and h/o hemorrhage DASHA KRUGER DO Apr 02, 2020 10:35
--- NOTE | 2020-04-02 11:02 | NUR ---
SHALINI Maravilla made initial visit. Pt seemed excited about going home today.
[2020-04-02 11:35] VITALS: BP 175/79
--- NOTE | 2020-04-02 12:36 | NUR ---
RD ASSESSMENT PMHx: DM; afib; hypercholesterolemia; HTN; chronic-UTI; diverticulosis PT INTERACTION: Pt was awake and pleasant during dietary consult for education. Pt states current appetite is "not good." Note avg PO intake 50-75% x1d, per chart review. Pt states following a regular diet at home, and has no issues with chewing/swallowing food. Pt states dietary intake consists of starches and fruit juices. Pt states no recent issues with nausea or vomiting. Pt states recent issues with constipation and diarrhea. Note last BM was 04/02, and pt currently on bowel regimen of miralax BID, per chart review. Pt states recent 15# wt loss x6w. Note recent 20# wt loss x2mon, per chart review. Pt states current DM management is "pretty good, but it's going up and down a lot." ABNORMAL NUTRITION-RELATED LAB VALUES LOW: BUN 6; HIGH: Cl 109; glu 166 Est. kcal needs: 1375 kcal | 20 kcal/kg Est. Pro needs: 55 g Pro | 0.8 g Pro/kg PES STATEMENT: Inadequate oral intake (NI-2.1) related to loss of appetite | constipation | diarrhea as evidenced by pt interview | avg PO intake 50-75% x1d Food- and nutrition-related knowledge deficit (NB-1.1) related to lack of prior nutrition-related information as evidenced by pt interview INTERVENTION: Continue with current diet order of Clear Liquid diet. Pt may benefit from diet advancement to consistent CHO diet, for pt tolerance. Discussed and provided diet education on DM management. Provided handout on CHO counting and label reading. Discussed different diets the pt had heard of and provided evidence-based science as to why those diets aren't healthy. Provided information about fiber content, portion control and smartphone applications. Provided contact information should pt have questions upon discharge. Pt verbalized understanding of information provided. Will continue to follow and reassess as pt needs, intake, and status change. MONITOR/EVALUATE: PO Intake; Plan of Care; Hydration Status; Weight Status; Lab Values Elodia Rodriguez, MS, RD, LD
== END 2020-04-02 11:35 | disposition home or self-care (01) | DRG 392 ==
LOC: 4TH 17:41
PROVIDERS: ADMIT Internal Medicine; ATTEND Internal Medicine
DX: K57.32 Diverticulitis of large intestine without perforation or abscess without bleeding (principal); R63.4 Abnormal weight loss; G47.30 Sleep apnea, unspecified; I34.1 Nonrheumatic mitral (valve) prolapse; I10 Essential (primary) hypertension; K57.90 Diverticulosis of intestine, part unspecified, without perforation or abscess without bleeding; E78.00 Pure hypercholesterolemia, unspecified; I48.0 Paroxysmal atrial fibrillation; E11.9 Type 2 diabetes mellitus without complications; K64.9 Unspecified hemorrhoids; F41.9 Anxiety disorder, unspecified; F32.9 Major depressive disorder, single episode, unspecified; Z79.4 Long term (current) use of insulin; Z86.010 Personal history of colon polyps
CPT/HCPCS: 36415; 74177; 80053; 82150; 82962; 83690; 85025; 85652

== ENCOUNTER 2020-05-18 05:40 | Outpatient (CLI) | payer MEDICARE, OTHER ==
[~2020-05-18] VITALS: Ht 161 cm; Wt 64.1 kg
[~2020-05-18 05:40] MED LIST changes: +ACID1TAB5 PO; +AMOX-358 PO; +METR500T PO
[2020-05-18] MEDS ORDERED: HYOS-6 PO (13:01)
== END 2020-05-18 13:07 ==
LOC: PREOP 05:40
PROVIDERS: ATTEND Surgery
DX: Z01.818 Encounter for other preprocedural examination (principal)

== ENCOUNTER 2020-05-25 08:00 | Day surgery (SDC) | payer MEDICARE, OTHER ==
[2020-05-25] VITALS (7 sets, daily range): BP systolic 94–147; BP diastolic 52–82
[~2020-05-25] VITALS: Ht 161 cm; Wt 64.1 kg
[~2020-05-25 08:00] MED LIST changes: -CETI10TA21 PO; +CETI10TA49 PO; +HYOS-6 PO
[2020-05-25] MEDS ORDERED: LACTATED RINGERS 1,000 ML IV STA (08:02)
[2020-05-25] MEDS ORDERED: LACTATED RINGERS 1,000 ML IV ONE (08:02)
[2020-05-25] MEDS ORDERED: PROPOFOL INJECTION 50 ML IV ONE (08:51)
[2020-05-25] MEDS ORDERED: MIDAZOLAM 2 MG/2 ML (VERSED) VIAL ONE (08:51)
--- NOTE | 2020-05-25 09:07 | Progress Note-Pre Operative ---
Pre-Operative Progress Note H&P Reviewed The H&P was reviewed, patient examined and no changes noted. Date Seen by Provider: May 25, 2020 Time Seen by Provider: 09:07 Date H&P Reviewed: May 25, 2020 Time H&P Reviewed: 09:07 Pre-Operative Diagnosis: hx polyps TAWNY VICTOR DO May 25, 2020 09:07
--- NOTE | 2020-05-25 09:34 | Progress Note-Post Operative ---
Post-Operative Progess Note Surgeon (s)/Automotive Finance Manager (s) Surgeon TAWNY VICTOR DO Automotive Finance Manager: na Pre-Operative Diagnosis hx polyps Post-Operative Diagnosis diverticulosis Procedure & Operative Findings Date of Procedure 05/25/20 Procedure Performed/Findings colonoscopy Anesthesia Type per sugar plantation manager Estimated Blood Loss Estimated blood loss (mL): none Specimens/Packing Specimens Removed na TAWNY VICTOR DO May 25, 2020 09:34
--- NOTE | 2020-05-25 09:36 | Discharge Inst-Simple/Standard ---
Discharge Inst-Standard Patient Instructions/Follow Up Plan of Care/Instructions/FU: 5 years Juan Carlos, any issues before that be seen at that time. Activity as Tolerated: Yes Discharge Diet: Regular Diet (high fiber) TAWNY VICTOR DO May 25, 2020 09:36
--- NOTE | 2020-05-25 13:32 | OPERATIVE REPORT ---
DATE OF SERVICE: 05/25/2020 PREOPERATIVE DIAGNOSIS: History of polyps. POSTOPERATIVE DIAGNOSIS: Diverticulosis. PROCEDURE: Colonoscopy. SURGEON: Tawny Rangel DO ANESTHESIA: Per REPRODUCTION MACHINE LOADER. ESTIMATED BLOOD LOSS: None. COMPLICATIONS: None. INDICATIONS: The patient is a 75-year-old female with history of polyps. She understands risks and benefits of procedure and wished to proceed with procedure. Consent was signed in the chart. DESCRIPTION OF PROCEDURE: The patient was taken to the endoscopy suite, placed in left lateral recumbent position. Timeout was performed. Digital rectal exam was performed. There were no palpable polyps, masses or ulcerations. Scope was inserted in the rectum and advanced all the way to cecum with minimal difficulty. Prep was adequate. Scope was then slowly retracted back. There were no polyps, masses or ulcerations within the cecum, ascending, transverse, descending and sigmoid colon. Throughout the majority of the colon, minimal amount of diverticulosis except for the sigmoid colon, which did have moderate amount of diverticula. No polyps, masses or ulcerations. Scope was then slowly retracted back in the rectum. It was also retroflexed noting no other pathology. Scope was returned to its normal position, slowly withdrawn until completely removed. The patient tolerated procedure well without any complications. She was taken to recovery room in stable condition. RECOMMENDATIONS: The patient will need repeat colonoscopy in 5 years. Any issues before that be seen at that time. Recommend high fiber diet due to diverticulosis. Any issues before next visit be seen at that time for reevaluation. Job ID: [id number] DocumentID: [id number] Dictated Date: 05/25/2020 09:38:35 Piano Professor Date: 05/25/2020 13:30:47 Dictated By: TAWNY RANGEL DO
--- NOTE | 2020-05-25 13:49 | Anesthesia-General Post-Op ---
MAC Patient Condition Mental Status/LOC: Same as Preop Cardiovascular: Satisfactory Nausea/Vomiting: Absent Respiratory: Satisfactory Pain: Controlled Complications: Absent Post Op Complications Complications None Follow Up Care/Instructions Patient Instructions None needed. Anesthesiology Discharge Order Discharge Order Patient is doing well, no complaints, stable vital signs, no apparent adverse anesthesia problems. No complications reported per nursing. PRATIBHA ABBOTT CRNA May 25, 2020 13:49
== END 2020-05-25 10:30 | disposition home or self-care (01) ==
LOC: ENDO 08:00
PROVIDERS: ATTEND Surgery
DX: Z09 Encounter for follow-up examination after completed treatment for conditions other than malignant neoplasm (principal); K57.30 Diverticulosis of large intestine without perforation or abscess without bleeding; Z86.010 Personal history of colon polyps; Z87.19 Personal history of other diseases of the digestive system; Z79.01 Long term (current) use of anticoagulants; Z79.899 Other long term (current) drug therapy; Z99.89 Dependence on other enabling machines and devices; Z88.8 Allergy status to other drugs, medicaments and biological substances; Z88.5 Allergy status to narcotic agent; Z79.4 Long term (current) use of insulin; Z79.890 Hormone replacement therapy; I48.0 Paroxysmal atrial fibrillation; I10 Essential (primary) hypertension; E03.9 Hypothyroidism, unspecified; E78.5 Hyperlipidemia, unspecified; E11.9 Type 2 diabetes mellitus without complications; Z87.891 Personal history of nicotine dependence; G47.33 Obstructive sleep apnea (adult) (pediatric); F32.9 Major depressive disorder, single episode, unspecified; M54.9 Dorsalgia, unspecified; I34.1 Nonrheumatic mitral (valve) prolapse

== ENCOUNTER 2020-06-27 07:14 | Emergency (ER) | payer MEDICARE, OTHER ==
[~2020-06-27] VITALS: Ht 162 cm; Wt 61.0 kg
--- NOTE | 2020-06-27 07:38 | NUR ---
PT STATES SHE HAS NOT TAKEN HER MEDS THIS AM INCLUDING HER BP MEDS.
--- NOTE | 2020-06-27 07:41 | ED General ---
General Chief Complaint: Glucose Problems Stated Complaint: COVID POSITIVE - HIGH BLOOD SUGAR Nursing Triage Note: ARRIVED VIA AMB WITH COMPLAINTS OF BLOOD SUGAR BEING IN THE 400'S SINCE 0500. PT HAS TAKEN LEVIMIR 30 UNTIS ALONG WITH HER ORAL MED THIS AM. PT IS COVID POSITIVE BUT IS IN NO DISTRESS. Nursing Sepsis Screen: No Definite Risk Source of Information: Patient Exam Limitations: No Limitations History of Present Illness Date Seen by Provider: Jun 27, 2020 Time Seen by Provider: 07:26 Initial Comments Patient presents ER by private conveyance from home with chief complaint of high blood sugars 424 this morning. She says she has had some sniffling runny nose, sore throat for the past 3 days and her was diagnosed with COVID-19 so yesterday she went to urgent care and was diagnosed with COVID 19. They started her on Decadron and she took one dose. Since then her blood sugars of been exceptionally high. Typically she uses glimepiride and ever since her bout of diverticulitis 2 months ago she has not had to use any insulin but in the past she did use a little Levemir. She took 30 units of her Levemir this morning and attempt to get her blood sugar did come down unsuccessfully. Nursing reports is 371 here in the ER. She does not use short-acting insulins. She does not have oxygen dependence, shortness of breath, cough, body aches etc. Allergies and Home Medications Allergies Coded Allergies: diphenhydramine (Verified Allergy, Unknown, 03/30/20) meperidine HCl (Verified Allergy, Unknown, 01/31/16) pravastatin (Verified Allergy, Unknown, 03/30/20) Home Medications Alprazolam 0.5 Mg Tablet, 0.5 MG PO EVERY 6-8 HOURS PRN for ANXIETY, (Reported) Amlodipine Besylate 10 Mg Tablet, 10 MG PO DAILY, (Reported) Atenolol 100 Mg Tablet, 100 MG PO DAILY, (Reported) Atenolol 50 Mg Tablet, 50 MG PO HS, (Reported) Cetirizine HCl 10 Mg Tablet, 10 MG PO HS, (Reported) Cholecalciferol (Vitamin D3) 1,000 Unit Capsule, 1,000 UNIT PO DAILY, (Reported) Fenofibrate Nanocrystallized 145 Mg Tablet, 145 MG PO HS, (Reported) Glimepiride 2 Mg Tablet, 2 MG PO BID, (Reported) Hyoscyamine Sulfate 0.125 Mg Tab.rapdis, 0.125 MG PO ACHS, (Reported) Insulin Detemir 100 Unit/1 Ml Insuln.pen, 25 UNIT SQ HS, (Reported) Levothyroxine Sodium 75 Mcg Tablet, 75 MCG PO DAILY, (Reported) Patient Home Medication List Home Medication List Reviewed: Yes Review of Systems Review of Systems Constitutional: No chills, No diaphoresis; malaise EENTM: No ear discharge, No ear pain Respiratory: No cough, No short of breath Cardiovascular: No Hx of Intervention, No syncope Gastrointestinal: No abdominal pain, No nausea, No vomiting Genitourinary: No discharge, No dysuria Musculoskeletal: No back pain, No joint pain All Other Systems Reviewed Negative Unless Noted: Yes Past Wwjqaxz-Bxmhxp-Tpswxp Hx Patient Social History Alcohol Use: Denies Use Recreational Drug Use: No Smoking Status: Never a Smoker Former Smoker, Quit: January 30, 1993 2nd Hand Smoke Exposure: No Recent Foreign Travel: No Contact w/Someone Who Travel: No Recent Infectious Disease Expo: No Recent Hopitalizations: No Immunizations Up To Date Tetanus Booster (TDap): Less than 5yrs Date of Pneumonia Vaccine: Jun 10, 2018 Date of Influenza Vaccine: Jun 10, 2018 Seasonal Allergies Seasonal Allergies: Yes Past Medical History Surgeries: Yes (bladder sx x3) Appendectomy, Bladder Surgery, Eye Surgery, Hysterectomy, Oophorectomy, Rectal Respiratory: No Sleep Apnea Currently Using CPAP: No Currently Using BIPAP: No Cardiac: Yes (mitral valve prolapse) Atrial Fibrillation, High Cholesterol, Hypertension, Valvular Heart Disease Neurological: No Reproductive Disorders: Yes (RECTOCOELE) Female Reproductive Disorders: Denies HYBRID TESTER History: Hysterectomy, Menopausal Sexually Transmitted Disease: No HIV/AIDS: No Genitourinary: Yes (BLADDER SURGERY X 3--LAST ONE IN 2011) Bladder Infection, UTI-Chronic Gastrointestinal: Yes Diverticulosis, Hemorrhoids, Polyps Musculoskeletal: Yes Chronic Back Pain Endocrine: Yes Diabetes, Insulin dep HEENT: Yes Cataract Cancer: No Psychosocial: Yes Anxiety, Depression Integumentary: No Blood Disorders: Yes (anemia in past) Family Medical History Colon cancer Congenital heart disease FH: CHF (congestive heart failure) 19 FATHER ( at 48) Hypercholesterolemia G8 SISTER Hypertension G8 SISTER Myocardial infarction 19 FATHER, Onset:30's - 40 (NM at 36) Osteoporosis G8 SISTER CAD Under 55 Years Old Physical Exam Vital Signs Vital Signs - First Documented 06/27/20 07:20 Temp 36.1 Pulse 94 Resp 16 B/P (MAP) 187/111 (136) Pulse Ox 98 O2 Delivery Room Air Capillary Refill : Less Than 3 Seconds Height, Weight, BMI Height: 5'4.00" Weight: 160lbs. 0.0oz. [id number]; 23.00 BMI Method:Stated General Appearance: No Apparent Distress, WD/WN Eyes: Bilateral Eye Normal Inspection, Bilateral Eye PERRL, Bilateral Eye EOMI HEENT: PERRL/EOMI, Pharynx Normal, Moist Mucous Membranes Neck: Full Range of Motion, Normal Inspection Respiratory: No Accessory Muscle Use, No Respiratory Distress Cardiovascular: Regular Rate, Rhythm, No Edema, Normal Peripheral Pulses Extremity: Normal Capillary Refill, Normal Inspection Neurologic/Psychiatric: Alert, Oriented x3, No Motor/Sensory Deficits Skin: Normal Color, Warm/Dry Progress/Results/Core Measures Suspected Sepsis Recent Fever Within 48 Hours: No Infection Criteria Present: None New/Unexplained Altered Menta: No Sepsis Screen: No Definite Risk SIRS Temperature: Pulse: 94 Respiratory Rate: 16 Blood Pressure 187 /111 Mean: 136 Results/Orders Lab Results Laboratory Tests Test 06/27/20 07:33 06/27/20 08:19 Range/Units Glucometer 371 H 360 H 70-110 MG/DL My Orders Orders - JOYA COTA Insulin (Regular) Human (Novolin R (Per (06/27/20 07:45) Accucheck Stat ONCE (06/27/20 07:37) Accucheck Stat ONCE (06/27/20 08:04) Insulin (Regular) Human (Novolin R (Per (06/27/20 08:30) Medications Given in ED Current Medications Medications Dose Ordered Sig/Esmer Route Start Time Stop Time Status Last Admin Dose Admin Insulin Human Regular 5 unit ONCE ONCE SC 06/27/20 07:45 06/27/20 07:46 DC 06/27/20 07:45 5 UNIT Insulin Human Regular 10 unit ONCE ONCE SC 06/27/20 08:30 06/27/20 08:31 DC 06/27/20 08:34 10 UNIT Vital Signs/I&O 06/27/20 07:20 Temp 36.1 Pulse 94 Resp 16 B/P (MAP) 187/111 (136) Pulse Ox 98 O2 Delivery Room Air Capillary Refill : Less Than 3 Seconds Blood Pressure Mean: 136 Point of Care Testing Finger Stick Blood Glucose: 371 Progress Note #1: Time: 07:40 Progress Note The patient's symptoms of COVID-19 are rather mild and she is not dependent on oxygen so there is probably no benefit to steroids. We have encouraged her to stop using them and we'll give her 5 units of regular insulin and see what that does for her blood sugar. She says she did take her glimepiride this morning so we want to be cautious not to cause hypoglycemia. We will monitor her for 20-30 minutes and rechecked her blood sugar. Progress Note #2: Time: 08:25 Progress Note repeat blood sugar 360 only a drop of 10 points over 30 minutes. Plan to give another 10 units of regular insulin subcutaneous and watch for another 30 minutes. Progress Note #3: Time: 09:05 Progress Note Her blood sugars now 339. It should continue to drop as she is not continuing the steroids and regular insulin we'll hang on for several hours. Regarding allow her to go home and only monitor her blood sugar fasting in the morning and if she's feeling symptomatic. Return precautions given. Departure Impression Primary Impression: Hyperglycemia Additional Impression: COVID-19 Disposition: 01 HOME, SELF-CARE Condition: Stable Departure-Patient Inst. Decision time for Depature: 09:05 Referrals: WASHINGTON KRUGER DO (PCP) Primary Care Physician Patient Instructions: Coronavirus Disease 2019 (COVID-19) Overview, Hy perglycemia, Adult (DC) Add. Discharge Instructions: Make sure drinking plenty of fluids as it's easy to become dehydrated when you're sugar is elevated. You do not need to routinely check your blood sugar. If you begin to feel cool, clammy, shaky, sweaty, headache or other worrisome symptoms then this could be an indicator your blood sugar is low and you should check it. If it is low then get something to eat with protein in it such as peanut butter. If you continue to have difficulties getting her blood sugar up then you may return to the ER. Stop taking the steroid, Decadron. If you feel significantly short of breath then you may obtain a pulse oximeter and if your values are measuring less than 94% I would encourage you to return to the nearest ER. Your blood sugar should return towards normal over the next day or 2. If you're still above 200 tomorrow morning while fasting than I would encourage you to take another 30 units of Levemir subcutaneous. All discharge instructions reviewed with patient and/or family. Voiced understanding. JOYA COTA Jun 27, 2020 07:41
[2020-06-27] MEDS ORDERED: inSUlin (REGULAR) HUMAN 1 UNIT/0.01 ML (CHARGE PER UNIT) SC ONE ×2 (07:45→08:30)
--- NOTE | 2020-06-27 08:34 | NUR ---
PT STATES SHE IS UPDATING HER BY PHONE.
--- NOTE | 2020-06-27 09:11 | NUR ---
IN TALKING TO THE PT AT THIS TIME
[2020-06-27 09:22] VITALS: BP 187/111
== END 2020-06-27 09:21 | disposition home or self-care (01) ==
LOC: EDUNIT# 07:14 → ER 07:15
DX: U07.1 COVID-19 (principal); E11.65 Type 2 diabetes mellitus with hyperglycemia; E78.00 Pure hypercholesterolemia, unspecified; I10 Essential (primary) hypertension; F41.9 Anxiety disorder, unspecified; Z79.4 Long term (current) use of insulin; Z82.49 Family history of ischemic heart disease and other diseases of the circulatory system; Z80.0 Family history of malignant neoplasm of digestive organs; Z87.891 Personal history of nicotine dependence; Z88.5 Allergy status to narcotic agent; Z88.8 Allergy status to other drugs, medicaments and biological substances
CPT/HCPCS: 82962

== ENCOUNTER → 2021-03-22 | Outpatient (CLI) | payer MEDICARE, OTHER ==
[~2021-03-22] MED LIST changes: +AMLO-251 PO; -AMLO10TA7 PO; +GLBR2.5T PO; -GLYB2.5T4 PO
--- NOTE | 2021-03-22 12:24 | Diagnostic Imaging Report ---
INDICATION: Routine screening. COMPARISON: 09/23/2018 and 06/01/2016. TECHNIQUE: 2D and 3D bilateral screening mammography was performed with CAD. FINDINGS: Both breasts are heterogeneously dense, limiting the sensitivity of mammography. The parenchymal pattern is stable. No mass or malignant appearing microcalcifications are seen. The axillae are unremarkable. IMPRESSION: No mammographic features suspicious for malignancy are identified. ACR BI-RADS Category 1: Negative. Result letter will be mailed to the patient. Note: At least 10% of breast cancer is not imaged by mammography. Dictated by: Dictated on workstation # [id number]
== END ==
LOC: RAD 09:45
PROVIDERS: ATTEND Internal Medicine
DX: Z12.31 Encounter for screening mammogram for malignant neoplasm of breast (principal)
CPT/HCPCS: 77063; 77067

== ENCOUNTER → 2022-03-23 | Outpatient (CLI) | payer MEDICARE, OTHER ==
--- NOTE | 2022-03-23 16:28 | Diagnostic Imaging Report ---
INDICATION: Routine screening. Comparison is made with prior mammogram from 03/22/2021 and 09/23/2018. 2-D and 3-D bilateral screening mammography was performed with CAD. Both breasts remain heterogeneously dense, limiting the sensitivity of mammography. The parenchymal pattern is stable. No mass or malignant-appearing microcalcifications are seen. Axillae are unremarkable. IMPRESSION: No mammographic features suspicious for malignancy are identified. ACR BI-RADS Category 1: Negative. Result letter will be mailed to the patient. Note: At least 10% of breast cancer is not imaged by mammography. BI-RADS Category 1 Dictated by: Dictated on workstation # [id number]
== END ==
LOC: RAD 10:15
PROVIDERS: ATTEND Internal Medicine
DX: Z12.31 Encounter for screening mammogram for malignant neoplasm of breast (principal)
CPT/HCPCS: 77063; 77067

== ENCOUNTER → 2023-03-27 | Outpatient (CLI) | payer MEDICARE, OTHER ==
[~2023-03-27] MED LIST changes: -INSU100I29 SQ; +INSU100I30 SQ
--- NOTE | 2023-03-27 12:22 | Diagnostic Imaging Report ---
INDICATION: Postmenopausal screening COMPARISON: Baseline FINDINGS: AP Spine L1-L4: [BMD (g/cm2): 1.199] [T-Score: 0.0] [Z-Score: 1.5] [BMD Previous: NA] [BMD % Change: NA] LT Hip Neck: [BMD (g/cm2): 0.944] [T-Score: -0.7] [Z-Score: 1.1] LT Hip Total: [BMD (g/cm2):1.035] [T-Score:0.2] [Z-Score: 1.8] [BMD Previous: NA] [BMD % Change: NA] RT Hip Neck: [BMD (g/cm2):0.866] [T-Score:-1.2] [Z-Score:0.6] RT Hip Total: [BMD (g/cm2):0.973] [T-score:-0.3] [Z-Score:1.3] [BMD Previous:NA] [BMD % Change:NA] *Indicates significant change from prior examination based on 95% confidence level. World Health Organization criteria for BMD interpretation classify patients as Normal (T-score at or above -1.0), Osteopenic (T-score between -1.0 and -2.5) or Osteoporotic (T-score at or below -2.5). LIMITATIONS AND MODIFICATION: None. FRACTURE RISK (FRAX SCORE): The ten year probability of (%): Major Osteoporotic Fracture: [10.7] Hip Fracture: [1.9] IMPRESSION: 1. Osteopenia (Low bone mass). 2. Baseline examination. 3. See below National Osteoporosis Foundation guidelines on when to potentially initiate pharmacologic therapy. Based on the National Osteoporosis Foundation Guidelines, pharmacologic treatment should be initiated in any of the following, unless clinical conditions suggest otherwise: * Any patient with prior fragility fracture of the hip or vertebrae. A spine fracture indicates 5X risk for subsequent spine fracture and 2X risk for subsequent hip fracture. * Osteoporosis (T-score <-2.5). * Postmenopausal women and men age 50 and older with low bone mass/osteopenia (T-score between -1.0 and -2.5) by DXA and 10-year major osteoporotic fracture greater than 20% or a 10-year probability of hip fracture greater than 3%. These fracture risks are supplied above in the FRAX score, if applicable. * Clinician judgement and/or patient preferences may indicate treatment for people with 10-year fracture probabilities above or below these levels. Dictated by: Dictated on workstation # [id number]
--- NOTE | 2023-03-27 14:22 | Diagnostic Imaging Report ---
INDICATION: Routine screening. COMPARISON: 03/23/2022 and 03/22/2021. TECHNIQUE: 2D and 3D bilateral screening mammography was performed with CAD. FINDINGS: Both breasts are heterogeneously dense, limiting the sensitivity of mammography. The parenchymal pattern is stable. No mass or malignant-appearing microcalcifications are seen. The axillae are unremarkable. IMPRESSION: No mammographic features suspicious for malignancy are identified. ACR BI-RADS Category 1: Negative. Result letter will be mailed to the patient. Note: At least 10% of breast cancer is not imaged by mammography. Dictated by: Dictated on workstation # [id number]
== END ==
LOC: RAD 10:27
PROVIDERS: ATTEND Internal Medicine
DX: Z12.31 Encounter for screening mammogram for malignant neoplasm of breast (principal); M85.80 Other specified disorders of bone density and structure, unspecified site; M81.8 Other osteoporosis without current pathological fracture; Z78.0 Asymptomatic menopausal state
CPT/HCPCS: 77063; 77067; 77080